=== PATIENT | male | born 1950 | race Caucasian/White ===

== ENCOUNTER 2020-01-08 16:02 | Emergency (ER) | payer MEDICARE, SELFPAY ==
--- NOTE | ~2020-01-08 | XR_ITS ---
EXAMINATION: XR wrist LT min 3V EXAM DATE: 01/08/2020 16:53 INDICATION: Initial encounter following injury, with pain of the left wrist. TECHNIQUE: Left wrist frontal, frontal with ulnar deviation, oblique and lateral projections obtained and reviewed. There is no prior study for comparison. FINDINGS: Left wrist scapholunate joint space is maintained. Acute comminuted left distal radial met aphyseal fracture, with about 30 degrees dorsal angulation and mild displacement dorsally. Closed, po sttraumatic fracture(s). There is overlying soft tissue swelling. No other acute findings. Advance d first carpometacarpal joint primary osteoarthritis. IMPRESSION: Comminuted left distal radial metaphyseal fracture, posterior angulation and displacemen t. Reviewed, dictated and finalized at location A. IMPRESSION: Comminuted left distal radial metaphyseal fracture, posterior angu lation and displacement.
[2020-01-08 16:07] VITALS: BP 108/80; PULSE 86; RESP 16; TEMP 37; O2SAT 98
--- NOTE | 2020-01-08 16:32 | ED.UPPEXIN ---
HPI - Extremity Injury (Upper) General Chief Complaint: Extremity Injury, Upper Stated Complaint: left wrist pain Time Seen by Provider: 01/08/20 16:12 Source: patient Mode of arrival: ambulatory Limitations: no limitations History of Present Illness HPI narrative: Pt is a 69 y/o male who presents to the ED with c/o lt wrist and lt knee pain secondary to a fall. He states that he stripped on his stairs and fell. Pt denies any dizziness. MD complaint: injury to: left and wrist Other injuries: LLE (knee) Place: home Context: fall Associated symptoms: denies other symptoms Related Data Home Medications Medication Instructions Recorded Confirmed buspirone 15 mg tablet 15 mg PO TID 09/05/19 metoprolol succinate 25 mg PO DAILY 01/08/20 Allergies Allergy/AdvReac Type Severity Reaction Status Date / Time adhesive tape Allergy Unknown Rash Verified 11/21/19 12:37 aspirin Allergy Unknown Rash Verified 11/21/19 12:37 cyclobenzaprine Allergy Unknown Nausea Verified 11/21/19 12:37 Review of Systems Review of Systems: All systems reviewed & are unremarkable except as noted in HPI and below Musculoskeletal: Musculoskeletal: Reports arthralgias (lt wrist and lt knee) Neurologic: Denies dizziness PMFSH Past Medical History Medical History (Updated 01/08/20 @ 17:15 by Ashish Gasca MD) Anxiety Arthritis Coronary artery disease CVA (cerebral vascular accident) Essential (primary) hypertension Factor VIII deficiency Gout, unspecified HLD (hyperlipidemia) HTN (hypertension) Insomnia due to medical condition Kidney stones Major depressive disorder, single episode, unspecified Myocardial infarction Pneumonia Polyosteoarthritis, unspecified Von Willebrand's disease Surgical History Surgical History H/O heart artery stent H/O shoulder surgery left History of surgical removal of meniscus of knee Rt knee removed Social History Social History Smoking status: Never smoker Alcohol intake: never Exam Const: General: healthy appearing, no acute distress and well developed Nutritional Appearance: well nourished Orientation/consciousness: patient oriented x3 (alert) and Other orientation findings (Alert) Limitations: no limitations HENMT: Head: normocephalic and atraumatic Ears: external ears normal General nose exam: No nasal discharge present and no epistaxis Face and sinus: face symmetric Mouth: Yes lip normal, Yes tongue normal and Yes moist mucous membranes Eyes: Conjunctivae: conjunctivae normal Sclera: sclerae normal EOM: EOMs intact bilaterally Neck: Neck: full ROM Chest: Chest palpation & inspection: no tenderness Resp: Effort & Inspection: normal respiratory effort Cardio: Rate: regular rate Rhythm: regular rhythm Peripheral pulses: radial pulses present bilateral GI: Inspection: non-distended Back/Spine/Pelvis: Thoracic/Lumbar Spine: thoracic and lumbar spine normal to inspection Skin: General skin exam: normal color and no rashes or lesions noted Neuro: General: patient oriented x3 (alert), moves all extremities and no focal motor deficits Cranial nerves: Yes facial symmetry Speech: normal speech Motor exam (neuro): Motor abnormalities not present Extrem: General: normal to inspection, full ROM, capillary refill normal and no pedal edema Right upper extremity: elbow/forearm abrasion (rt forearm) Left upper extremity: wrist swelling and deformity (steven deformity of distal radius) Psych: Affect: normal affect Course Consultations Consultation #1: Discussed case with Dr. Griggs, the orthopedic surgeon. Will see the pt in office on . Date: 01/08/20 Time: 17:02 Vital Signs Vital signs: Vital Signs Temperature 37.0 C 01/08/20 16:07 Pulse Rate 86 01/08/20 16:07 Respiratory Rate 16 01/08/20 16:07 Blood Pressure 108/80 01/08/20 16:07 Pulse Oximetry 98
--- NOTE | 2020-01-08 17:57 | PC.NURSE ---
Verbal order readback from EDP , sugar tong splint on the left wrist.
[2020-01-08 18:20] VITALS: BP 110/74; PULSE 82; RESP 16; O2SAT 99
== END 2020-01-08 18:27 | disposition home or self-care (01) ==
PROVIDERS: Emergency Provider Emergency Medicine; PCP Family Medicine
DX: S52.532A Colles' fracture of left radius, initial encounter for closed fracture (principal); Z95.5 Presence of coronary angioplasty implant and graft; F41.9 Anxiety disorder, unspecified; M19.90 Unspecified osteoarthritis, unspecified site; I25.10 Atherosclerotic heart disease of native coronary artery without angina pectoris; Z86.73 Personal history of transient ischemic attack (TIA), and cerebral infarction without residual deficits; I10 Essential (primary) hypertension; M10.9 Gout, unspecified; E78.5 Hyperlipidemia, unspecified; Z87.442 Personal history of urinary calculi; F32.9 Major depressive disorder, single episode, unspecified; I25.2 Old myocardial infarction; D68.0 Von Willebrand disease; W10.9XXA Fall (on) (from) unspecified stairs and steps, initial encounter
CPT/HCPCS: 29125; 73110; 99284; A4565; A9270

== ENCOUNTER 2020-03-07 18:26 | Inpatient (IN) | payer MEDICARE, SELFPAY ==
--- NOTE | ~2020-03-07 | CT_ITS ---
EXAMINATION: CT abdomen pelvis w con DATE: 03/07/2020 20:16 INDICATION: Confusion. GI bleed. TECHNIQUE: Computed tomography (CT) of the abdomen and pelvis was performed with 100 cc Omnipaque 350 intravenous contrast. The dose-length product was 1398.90 mGy-cm. Automated exposure control and ite rative reconstruction technique were employed. COMPARISON: None. FINDINGS: There is dependent atelectasis. There is atherosclerosis. There are calcified granulomas in the spleen. Small subcentimeter hypodensities of the kidneys, most likely benign cysts. The liver, p ancreas, adrenal glands are unremarkable. Normal appendix. Nonobstructive bowel gas pattern. No free air or free fluid. Colonic diverticulosis without evidence for diverticulitis. No evidence for aneury sm. Status post median sternotomy for CABG. Old mild compression deformities of the lower thoracic sp ine, likely chronic. IMPRESSION: 1. No acute abdominal abnormality. Reviewed, dictated and finalized at location A.
--- NOTE | ~2020-03-07 | CT_ITS ---
EXAMINATION: CT brain wo con DATE: 03/07/2020 20:16 INDICATION: Confusion. TECHNIQUE: Computed tomography (CT) of the head was performed without intravenous contrast. The dose- length product was 605.33 mGy-cm. The mA was adjusted according to patient size. Iterative reconstruc tion technique was employed. COMPARISON: CT dated 08/02/2018 FINDINGS: Generalized atrophy. There are scattered mild periventricular and subcortical white matter changes, most likely related to small vessel ischemic disease (microangiopathy). There is intracrania l atherosclerosis. No acute intracranial hemorrhage, infarction, mass or mass effect. There is mucosa l thickening of the ethmoid and right sphenoid sinus. Mastoids are pneumatized. No depressed skull fr actures. IMPRESSION: 1. No acute intracranial abnormality. 2: Chronic sinusitis. 3: Chronic age-related findings. Reviewed, dictated and finalized at location A.
[2020-03-07 18:32] VITALS: BP 130/69; PULSE 94; RESP 20; TEMP 36.7; O2SAT 97
--- NOTE | 2020-03-07 19:12 | ED.GIBLEED ---
HPI - GI Bleed General Chief complaint: GI Bleed Stated complaint: DARK TARRY STOOLS Time Seen by Provider: 03/07/20 19:03 History of Present Illness HPI Narrative: Patient presents via EMS with his sister for GI bleed. He said he has been passing blood for days and weeks. He denies any pain. He has a bruise on his right upper arm but does not recall how he got it. He knows the year but says that Dr. Mcgee lives with him. His sister said he has been confused for a couple days. He is not on a blood thinner. Friends of his called the sister to come check on him. She said his house was a mess although usually he is quite fastidious about his cleanliness. I asked him if I could speak with his sister and he said yes but she is going to give you lies. He said that he is completely confused and not at all himself. He does live alone but has good friends and family support. He has not needed additional help until recently. MD complaint: blood streaked stool Onset (ago): day(s) Pain Consistency: constant Severity: moderate Relieving factors: none Exacerbating factors: none Associated symptoms: easy bruising and other (Confusion) Related Data Home Medications Medication Instructions Recorded Confirmed buspirone 15 mg tablet 15 mg PO TID 09/05/19 02/22/20 metoprolol succinate 25 mg PO DAILY 01/08/20 02/22/20 hydrocodone-acetaminophen 1 tablet PO Q2-6H PRN 03/07/20 tizanidine 4 mg PO Q3-4D PRN 03/07/20 Allergies Allergy/AdvReac Type Severity Reaction Status Date / Time adhesive tape Allergy Unknown Rash Verified 02/22/20 12:07 aspirin Allergy Unknown Rash Verified 02/22/20 12:07 cyclobenzaprine Allergy Unknown Nausea Verified 02/22/20 12:07 Review of Systems Review of Systems: Narrative: CONSTITUTIONAL: Denies fever, chills, or sweats. EYES: Denies visual changes, redness, or discharge. ENT: Denies rhinorrhea, congestion, sore throat, or otalgia. CARDIOVASCULAR: Denies chest pain, palpitations, or edema. RESPIRATORY: Denies cough or dyspnea. GASTROINTESTINAL: Denies abdominal pain, nausea, vomiting, or diarrhea. GENITOURINARY: Denies dysuria or hematuria. SKIN: Denies rash or itching. MUSCULOSKELETAL: Denies back pain, joint pain, or myalgia. NEUROLOGIC: Denies headache, numbness, or weakness. PSYCHIATRIC: Denies confusion. PMFSH Past Medical History Medical History Anxiety Arthritis Coronary artery disease CVA (cerebral vascular accident) Essential (primary) hypertension Factor VIII deficiency Gout, unspecified HLD (hyperlipidemia) HTN (hypertension) Insomnia due to medical condition Kidney stones Major depressive disorder, single episode, unspecified Myocardial infarction Pneumonia Polyosteoarthritis, unspecified Von Willebrand's disease Surgical History Surgical History H/O heart artery stent H/O shoulder surgery left History of surgical removal of meniscus of knee Rt knee removed Family History Family History Sibling Hypertension Father Family history of hemophilia Mother Cerebrovascular accident Social History Social History Smoking status: Never smoker Alcohol intake: never Exam Narrative: Exam Narrative: GENERAL: Pale, well-nourished, and in no acute distress. Hair is disheveled. HEAD: Normocephalic, atraumatic. EYES: PERRLA and EOMI. ENT: Nares clear, no rhinorrhea or epistaxis. Mucous membranes moist. NECK: Supple. CHEST: Clear to auscultation. No respiratory distress. Well-healed scar on the chest. HEART: Regular rate and rhythm. No murmur heard. Normal peripheral pulses. ABDOMEN: Soft, nontender, nondistended, normal active bowel sounds. EXTREMITIES: Normal range of motion. No edema. Bruise on the right upper arm SKIN: Warm, dry, no rash. NEURO: No focal deficits.
[2020-03-07 20:08] LABS: Estimated CRCL calculation 79 ml/min; Estimated Glomerular Filt Rate > 60
[2020-03-07 20:43] LABS: Basophils Absolute Auto 0.1 K/mm3 (0.0-0.1); Basophils Percent Auto 0.4 % (0.2-1.2); Eosinophils Absolute Auto 0.1 K/mm3 (0-0.3); Immature Granulocyte Absolute 0.15 K/mm3 (0.00-0.031); Immature Granulocyte Percent A 1.1 % (0-0.5); Lymphocytes Absolute Auto 2.23 K/mm3 (0.9-3.2); Mean Corpuscular HGB Conc 32.7 g/dl (32-36); Mean Corpuscular Hemoglobin 32.8 pg (26-34); Mean Corpuscular Volume 100.5 fl (80-100); Mean Platelet Volume 11.6 fl (7.4-10.4); Monocytes Absolute Auto 1.3 K/mm3 (0.1-0.6); Monocytes Percent Auto 10.2 % (2.6-8.5); Neutrophils Absolute Auto 9.2 K/mm3 (1.3-6.7); Neutrophils Percent Auto 70.3 % (45.5-73.1); Nucleated Red Blood Cells Absolute Auto 0.1 K/mm3 (0.0-0.012); Nucleated Red Blood Cells Perc 0.5 % (0.0-0.2); Platelet Count Result 250 k/mm3 (150-375); Red Blood Count 1.95 M/mm3 (4.6-6.20); Red Cell Distribution Width 14.7 % (11.5-14.5); White Blood Count 13.1 K/mm3 (4.5-10.0)
[2020-03-07 20:46] LABS: Hemoglobin 6.4 g/dL (14.0-18.0)
[2020-03-07 20:47] LABS: Hematocrit 19.6 % (42.0-52.0)
[2020-03-07 20:53] LABS: Alanine Aminotransferase 22 U/L (4-50); Albumin Level 3.5 g/dL (3.5-5.1); Alkaline Phosphatase 40 U/L (38-126); Aspartate Amino Transferase 28 U/L (17-59); Bilirubin,Total 0.3 mg/dL (0.2-1.3); Blood Urea Nitrogen 18 mg/dL (9-20); Calcium 8.5 mg/dL (8.4-10.2); Carbon Dioxide 25 mmol/L (22-30); Chloride 107 mmol/L (98-107); Estimated CRCL calculation 100 ml/min; Estimated Glomerular Filt Rate > 60; Glucose 106 mg/dL (75-110); Sodium 135 mmol/L (137-145)
[2020-03-07 20:55] LABS: INR 1.2; Prothrombin Time 14.8 Seconds (11.1-14.7)
[2020-03-07 20:56] LABS: Partial Thromboplastin Time 26.9 SECONDS (22.3-36.8)
--- NOTE | 2020-03-07 21:59 | PC.NURSE ---
patient took bedtime home medications
[2020-03-07 22:07] VITALS: BP 141/72; PULSE 97; RESP 20; TEMP 36.7; O2SAT 95
[2020-03-07] MEDS: SODIUM CHLORIDE 0.9% IV 250 ML 30 ML IV CONT (22:18)
[2020-03-07] MEDS: TUBING, BLOOD SET 1 EACH XX (22:22)
[2020-03-07 22:29] VITALS: BP 150/89; PULSE 99; RESP 20; TEMP 37; O2SAT 95
[2020-03-07 23:27] VITALS: BP 106/79; PULSE 81; RESP 19; TEMP 36.8; O2SAT 98
[2020-03-07] MEDS: SODIUM CHLORIDE 0.9% IV 250 ML 30 ML (23:45)
[2020-03-07] MEDS: TUBING, BLOOD PLUM PUMP TUBING 1 EACH XX (23:45)
[2020-03-07 23:50] VITALS: BP 127/66; PULSE 84; RESP 22; TEMP 36.9; O2SAT 99
[2020-03-08] VITALS (13 sets, daily range): BP systolic 123–169; BP diastolic 58–88; PULSE 72–86; RESP 17–21; TEMP 36.4–37.7; O2SAT 96–100; BMI 31.0
--- NOTE | 2020-03-08 03:16 | PM.IMHP ---
H&P: HPI History of Present Illness Chief complaint: Dark bloody stool on Wednesday Narrative: Date and time of patient contact: 03/08/2000 30 at 1:55 a.m. Hollis Gentile is a 70 year old male with a past medical history of Von Willebrand's disease, coronary artery disease, and hypertension who presented to the ER via private vehicle due to bloody stools that occurred 2 days ago. The patient stated that he would not have come into the hospital but his sister insisted. He has had intermittent rectal bleeding on and off for years. He has had colonoscopy many years ago with no obvious source of bleeding noted. The patient reports that he had a small stool on Wednesday without any significant bleeding that he noticed. He reported that about a week or so ago he did have some lightheadedness with standing. He denies any increased shortness of breath. He reported that when he had the episode of rectal bleeding he did feel as if he may pass out but has had no further syncopal or near syncopal events. He initially denied having any falls but the patient evidently had fallen in December and had a Colles fracture of his left wrist. He had also stumbled while getting off of a tractor a week or 2 ago and has a large bruise to his right upper arm. According to outpatient records the patient was started on Xarelto August 2019 due to chest pain. The patient had been taking 3 325 mg aspirin twice a day to help with his chest pain/circulation. The patient was started on 2.5 mg of Xarelto b.i.d. an effort to help with his chest pain. When the patient returned for follow-up visit in October the patient had increased his Xarelto to 5 mg twice a day and was taking 325 mg aspirin t.i.d. he was still having chest pain even with nitroglycerin. He did not want to go to the hospital and was subsequently placed on Xarelto 10 mg a day which the patient was taking 5 mg b.i.d. and his metoprolol succinate was increased to 50 mg daily. The patient wanted to increase is Xarelto at that time and was told to discuss it with his landscape crew member. The patient did not specify whether not he had talked to his landscape crew member about the Xarelto and there was some confusion as to whether patient is still taking 5 mg b.i.d. of Xarelto or if he has increased himself to 10 mg b.i.d.. Patient is also on Celebrex. It is unclear if the patient is still taking excessive amounts of aspirin at home. The patient was referred to Dr. Mcclelland to persistent leukocytosis since he could not get into Dr. Breen as he no longer comes to the [facility] location. He denies any hematuria or other urinary symptoms. He denies any increased bruising from baseline. He has not noticed any bleeding from his gums or nose. The patient at times does seem to be confused. He has had multiple evaluations for confusion with multiple neuro consults in the past. He recently had an outpatient MRI that was unremarkable except for microvascular changes. I suspect that some of the patient's confusion may be due to his narcotic and muscle relaxer use. In addition to Ambien and trazodone use. Source of information past medical records and patient report. Patient is only a fair historian. The med rec listed below according to nursing documentation. I have asked the nursing staff to change the patient's metoprolol dose to 50 mg that the patient's medication was increased toback in November and this has not yet occurred. I also asked the nursing staff to place the Xarelto order in according to what the patient takes and this has also not occurred. The rest of the medication reconciliation is accurate to the best of my knowledge. Review of Systems Review of Systems: Narrative: 12 systems were reviewed with pertinent positives and negatives per HPI. Except as documented in the HPI, all other systems were reviewed and are negative. [facility] Past Medical History Medical History (Updated 03/08/20 @ 04:00 by Thais Reagan DO) Anxie
[2020-03-08] MEDS: LORAZEPAM 0.5 MG TABLET PO (04:52)
[2020-03-08 05:47] LABS: Hematocrit 25.3 % (42.0-52.0); Hemoglobin 8.3 g/dL (14.0-18.0); Mean Corpuscular HGB Conc 32.8 g/dl (32-36); Mean Corpuscular Hemoglobin 30.6 pg (26-34); Mean Corpuscular Volume 93.4 fl (80-100); Mean Platelet Volume 10.8 fl (7.4-10.4); Platelet Count Result 239 k/mm3 (150-375); Red Blood Count 2.71 M/mm3 (4.6-6.20); Red Cell Distribution Width 16.6 % (11.5-14.5); White Blood Count 10.9 K/mm3 (4.5-10.0)
[2020-03-08 06:19] LABS: Blood Urea Nitrogen 12 mg/dL (9-20); Calcium 8.2 mg/dL (8.4-10.2); Carbon Dioxide 24 mmol/L (22-30); Chloride 107 mmol/L (98-107); Estimated CRCL calculation 101 ml/min; Estimated Glomerular Filt Rate > 60; Glucose 106 mg/dL (75-110); Potassium 3.8 mmol/L (3.4-5.0); Sodium 137 mmol/L (137-145)
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
[2020-03-08] MEDS: LACTATED RINGERS 1,000 ML 150 ML IV CONT (09:30)
--- NOTE | 2020-03-08 09:50 | WPDANESEPPF ---
Anes - Initial Pre Proc Eval Procedure: Operation Date: 03/08/20 10:30 Proposed Procedures p Esophagogastroduodenoscopy - Ashish Torres MD Date/Time: 03/08/20 09:50 Surgeon: Leora Love PA-C Pre Op Diagnosis: Dark bloody stool on Wednesday Patient Data Age: 70 Gender: M Height: 1.8 m Weight: 100.9 kg Last Vital Signs Temp 37.0 C 03/08/20 09:27 Pulse 79 03/08/20 09:27 Resp 18 03/08/20 09:27 BP 151/73 H 03/08/20 09:27 Pulse Ox 96 03/08/20 09:27 Allergies Allergy/AdvReac Type Severity Reaction Status Date / Time adhesive tape Allergy Unknown Rash Verified 02/22/20 12:07 aspirin Allergy Unknown Rash Verified 02/22/20 12:07 cyclobenzaprine Allergy Unknown Nausea Verified 02/22/20 12:07 Home Medications Medication Instructions Recorded Confirmed Type buspirone 15 mg tablet 15 mg PO TID 09/05/19 03/08/20 History celecoxib 200 mg capsule 200 mg PO DAILY #30 cap 09/11/19 03/08/20 Rx nitroglycerin 0.4 mg sublingual 0.4 mg SUBLINGUAL Q5M PRN #25 09/18/19 03/08/20 Rx tablet tablet trazodone 50 mg tablet 50 mg PO .qhs #30 tablet 10/16/19 03/08/20 Rx lorazepam 0.5 mg tablet 0.5 mg PO TID PRN #270 tablet 11/22/19 03/08/20 Rx citalopram 20 mg tablet 20 mg PO DAILY #30 tablet 11/26/19 03/08/20 Rx atorvastatin 80 mg tablet 80 mg PO DAILY #90 tablet 12/12/19 03/08/20 Rx amlodipine 10 mg tablet 10 mg PO DAILY #90 tablet 12/24/19 03/08/20 Rx lisinopril 40 mg tablet 40 mg PO DAILY #30 tablet 12/24/19 03/08/20 Rx hydrocodone-acetaminophen 1 tablet PO Q6H PRN #20 tablet 01/08/20 03/08/20 Rx allopurinol 300 mg tablet 300 mg PO DAILY #90 tablet 02/13/20 03/08/20 Rx isosorbide mononitrate 60 mg 60 mg PO DAILY #90 tablet 02/13/20 03/08/20 Rx tablet,extended release 24 hr zolpidem 12.5 mg tablet,extended 12.5 mg PO .QHS #30 tablet 02/19/20 03/08/20 Rx release,multiphase rivaroxaban 10 mg tablet 10 mg PO DAILY #30 tablet 02/22/20 03/08/20 Rx hydrocodone-acetaminophen 10 - 325 tablet PO Q3-5H PRN 03/07/20 03/08/20 History tizanidine 4 mg PO Q3-4D PRN 03/07/20 03/08/20 History metoprolol succinate 25 mg PO BID 03/08/20 03/08/20 History Laboratory Tests 03/07/20 03/07/20 03/07/20 18:53 20:05 20:20 WBC RBC Hgb Hct MCV MCH MCHC RDW Plt Count MPV Immature Gran % (Auto) Neut % (Auto) Lymph % (Auto) Love % (Auto) Eos % (Auto) Baso % (Auto) Lymph # (Auto) Love # (Auto) Eos # (Auto) Baso # (Auto) Abs Immat Gran (auto) Absolute Neuts (auto) Absolute Nucleated RBC Nucleated RBC % PT INR APTT Sodium 135 mmol/L L mmol/L (137-145) Potassium 4.0 mmol/L mmol/L (3.4-5.0) Chloride 107 mmol/L mmol/L (98-107) Carbon Dioxide 25 mmol/L mmol/L (22-30) BUN 18 mg/dL mg/dL (9-20) Creatinine 0.90 mg/dL mg/dL 0.70 mg/dL mg/dL (0.8-1.5) (0.7-1.3) Estim Creat Clear Calc 79 ml/min ml/min 100 ml/min ml/min Estimated GFR > 60 > 60 (59 - ) (59 - ) Glucose 106 mg/dL mg/dL (75-110) Calcium 8.5 mg/dL mg/dL (8.4-10.2) Total Bilirubin 0.3 mg/dL mg/dL (0.2-1.3) AST 28 U/L U/L (17-59) ALT 22 U/L U/L (4-50) Alkaline Phosphatase 40 U/L U/L (38-126) Total Protein 5.0 g/dL L g/dL (6.3-8.2) Albumin 3.5 g/dL g/dL (3.5-5.1) Blood Type A Positive Antibody Screen Negative Crossmatch See Detail 03/07/20 03/07/20 03/08/20 20:29 20:29 05:22 WBC 13.1 K/mm3 H K/mm3 10.9 K/mm3 H K/mm3 (4.5-10.0) (4.5-10.0) RBC 1.95 M/mm3 L M/mm3 2.71 M/mm3 L M/mm3 (4.6-6.20) (4.6-6.20) Hgb
[2020-03-08] MEDS: lisinopriL 20 MG TABLET 40 MG PO (11:31)
[2020-03-08] MEDS: ISOSORBIDE MONONITRATE 60 MG TAB.ER.24H PO (11:31)
[2020-03-08] MEDS: CITALOPRAM HYDROBROMIDE 20 MG TABLET PO (11:31)
[2020-03-08] MEDS: TIZANIDINE HCL 4 MG TABLET PO (11:32)
[2020-03-08] MEDS: AMLODIPINE BESYLATE 5 MG TABLET 10 MG PO (11:32)
[2020-03-08] MEDS: ATORVASTATIN 40 MG TABLET 80 MG PO (11:32)
[2020-03-08] MEDS: busPIRone HCL 5 MG TABLET 15 MG PO ×2 (11:33→17:26)
[2020-03-08] MEDS: allopurinoL 300 MG TABLET PO (11:33)
[2020-03-08 12:01] LABS: Hematocrit 25.9 % (42.0-52.0); Hemoglobin 8.5 g/dL (14.0-18.0)
--- NOTE | 2020-03-08 12:07 | P.CDI_ITS ---
CDI Query Clarification Request - 03/07 H&H 6.4/19.6 -Two units of blood transfused - 03/08 H&H 8.3/25.3 - Per EGD: acute gastric ulcers and acute duodenal ulcers with clot present - Dr Torres documented reason for EGD- melena; gi bleed; anemia, blood loss. - Problem list- Acute GI bleed: multifactorial due to Celebrex, Xarelto use and possibly von Willebrands disease contributing to anemia documented in H&P. Please clarify typ/cause and acuity of anemia: * Acute blood loss anemia * Acute blood loss anemia on anemia of chronic disease * Acute anemia of other cause * Chronic anemia * Other * Unable to determine
[2020-03-08] MEDS: PANTOPRAZOLE SODIUM IV 40 MG VIAL IV PUSH (12:36)
[2020-03-08] MEDS: METOPROLOL SUCCINATE EXT REL 25 MG TABCR PO (12:36)
--- NOTE | 2020-03-08 16:26 | PM.DS ---
DS: Admitting Diagnosis Admitting Diagnosis Admitting Diagnosis: Gastrointestinal hemorrhage, unspecified DS: Discharge Diagnosis Discharge Diagnosis (1) Acute GI bleeding: Code(s): K92.2 - Gastrointestinal hemorrhage, unspecified Status: Acute Assessment and Plan: Multifactorial due to Celebrex, Xarelto use and possibly von Willebrand's disease contributing to anemia. 2 units of packed red blood cells was given in the emergency department. Repeat CBC this morning showed his hemoglobin at 8.3 and hematocrit at 25 %. Repeat H&H at noon showed his hemoglobin was stable at 8.5, hematocrit 25.9% He had an EGD this morning by Dr. Torres who found that he has gastric ulcers, duodenal ulcer and a bulb deformity to his duodenum. Dr. Torres feels he needs to be placed on a PPI pantoprazole 40 mg twice a day, avoid aspirin, NSAIDs and anticoagulation. Dr. Torres would like him to follow-up in the office for a repeat EGD in 2 months. The patient is adamant about leaving to go home today. He does not want stay another night and states he is feeling much better after his blood transfusions in after his EGD. GI states he wants the patient to have a clear liquid diet and then advanced as tolerated to soft diet. The patient has tolerated clear diet without any issues but he is adamant about leaving at this time without trying a soft diet. Blood counts are otherwise stable at this time. I explained to the patient the importance of staying for further evaluation, advancement of diet, recheck CBC but the patient would like to leave at this time and I will have him sign out against medical advice. Will have the patient check a CBC on Wednesday Patient states he does have a follow-up with his primary care provider Dr. Mcgee on Wednesday as well. Dr. Mcgee can continue monitoring his H&H and check on him Wednesday at their scheduled appointment. (2) Von Willebrand disease: Code(s): D68.0 - Von Willebrand's disease Status: Acute Assessment and Plan: I found a consult note from 2009 that stated that the patient's von Willebrand's disease was mild and min is a get older sometimes no longer have difficulty with bleeding issues. Will stop the patient's Celebrex and Xarelto. Patient H&H is stable after 2 units were transfused. Will have him follow-up with his primary care provider for further evaluation. (3) Chronic sinusitis: Qualifiers: Sinusitis location: unspecified location Qualified Code(s): J32.9 - Chronic sinusitis, unspecified Code(s): J32.9 - Chronic sinusitis, unspecified Status: Acute Assessment and Plan: The patient and an outpatient evaluation by ENT several years ago for the same CT finding and nasal polyps. At that time ENT recommended conservative management along with the patient was not having significant symptoms due to his risk of bleeding and other comorbidities. The patient denies significant sinus symptoms. (4) Opioid dependence with opioid-induced disorder: Code(s): F11.29 - Opioid dependence with unspecified opioid-induced disorder Status: Acute Assessment and Plan: The patient's home Mill[place] has been ordered however have decreased the frequency q.4 hours. Adjunct if pain medication with muscle relaxers per his home regimen have been ordered. His Celebrex is currently on hold (5) Gastric ulcer: Code(s): K25.9 - Gastric ulcer, unspecified as acute or chronic, without hemorrhage or perforation Status: Acute (6) Duodenal ulcer: Code(s): K26.9 - Duodenal ulcer, unspecified as acute or chronic, without hemorrhage or perforation Status: Acute (7) Leukocytosis: Code(s): D72.829 - Elevated white blood cell count, unspecified
[2020-03-08 18:19] LABS: Hematocrit 24.6 % (42.0-52.0); Hemoglobin 7.9 g/dL (14.0-18.0)
--- NOTE | 2020-03-08 18:39 | PC.NURSE ---
Pt is being discharged this p.m. Pt's IV has been removed and pt is eating dinner, which was required for his discharge (to make sure he could tolerate). Pt's sister is coming to pick pt up between 8:30 and 9:00, and discharge papers have been printed and will be reviewed with pt at time of leaving.
== END 2020-03-08 20:06 | disposition home or self-care (01) | DRG 378 ==
LOC: ANHED 23:35 → ANH3MEDSUR 03-08 00:07
PROVIDERS: Internal Medicine Gastroenterology; Nurse Practitioner Family; Admitting Provider Internal Medicine; Emergency Provider Emergency Medicine; PCP Family Medicine; Visit Provider Physician Assistant
PROC: 0DJ08ZZ Inspection of Upper Intestinal Tract, Via Natural or Artificial Opening Endoscopic (ICD-10-PCS; CPT 43235; principal; 2020-03-08 10:30)
DX: K26.0 Acute duodenal ulcer with hemorrhage (principal); D68.0 Von Willebrand disease; K31.89 Other diseases of stomach and duodenum; K25.3 Acute gastric ulcer without hemorrhage or perforation; D50.0 Iron deficiency anemia secondary to blood loss (chronic); F11.29 Opioid dependence with unspecified opioid-induced disorder; J32.9 Chronic sinusitis, unspecified; D72.829 Elevated white blood cell count, unspecified; R41.0 Disorientation, unspecified; I25.10 Atherosclerotic heart disease of native coronary artery without angina pectoris; I10 Essential (primary) hypertension; E78.5 Hyperlipidemia, unspecified; M10.9 Gout, unspecified; Z66 Do not resuscitate; I25.2 Old myocardial infarction; Z79.899 Other long term (current) drug therapy; Z95.1 Presence of aortocoronary bypass graft; Z79.01 Long term (current) use of anticoagulants
CPT/HCPCS: 36415; 36430; 70450; 74177; 80048; 80053; 85014; 85018; 85025; 85027; 85610; 85730; 86850; 86900; 86901; 86923; 88305; 96360; 99285; A9270; C9113; J2001; J2704; J7050; J7120; P9016; Q9967

== ENCOUNTER 2020-03-11 13:23 | Emergency (ER) | payer MEDICARE, SELFPAY ==
--- NOTE | ~2020-03-11 | XR_ITS ---
EXAMINATION: XR chest 1V portable DATE: 03/11/2020 13:55 INDICATION: Weakness. TECHNIQUE: A single frontal view of the chest was obtained. COMPARISON: Chest 2 views 05/08/2019, CT abdomen and pelvis 03/07/2020 FINDINGS: There is mild atelectasis in left lower lung zone. Calcified left lung nodules and calcifie d left hilar lymph nodes are consistent with old granulomatous disease. No pleural effusion or pneumo thorax. The heart size is normal. Median sternotomy wires are noted. There is a suture anchor in left humeral head. IMPRESSION: 1. Mild atelectasis in left lower lung zone. Reviewed, dictated and finalized at location A.
[2020-03-11 13:25] VITALS: BP 85/50; PULSE 57; RESP 20; TEMP 36.3; O2SAT 97
--- NOTE | 2020-03-11 13:40 | ECG_ITS ---
Measurements Intervals [place] Rate: 62 P: 41 RI: 201 QRS: 51 QRSD: 153 T: 21 QT: 457 QTc: 467 Interpretive Statements SINUS RHYTHM BORDERLINE AV CONDUCTION DELAY RIGHT BUNDLE BRANCH BLOCK BASELINE ARTIFACT- I, II, III, AVL, AVF ABNORMAL ECG Electronically Signed On 03-11-2020 13:59:35 CDT by Eloy Villegas D.O.
[2020-03-11 14:00] LABS: Basophils Absolute Auto 0.1 K/mm3 (0.0-0.1); Basophils Percent Auto 0.6 % (0.2-1.2); Eosinophils Absolute Auto 0.3 K/mm3 (0-0.3); Eosinophils Percent Auto 2.6 % (0-4.4); Hematocrit 27.1 % (42.0-52.0); Hemoglobin 8.6 g/dL (14.0-18.0); Immature Granulocyte Absolute 0.08 K/mm3 (0.00-0.031); Immature Granulocyte Percent A 0.8 % (0-0.5); Lymphocytes Absolute Auto 1.75 K/mm3 (0.9-3.2); Lymphocytes Percent Auto 17.6 % (18.3-44.2); Mean Corpuscular HGB Conc 31.7 g/dl (32-36); Mean Corpuscular Hemoglobin 30.4 pg (26-34); Mean Corpuscular Volume 95.8 fl (80-100); Mean Platelet Volume 10.3 fl (7.4-10.4); Monocytes Absolute Auto 0.8 K/mm3 (0.1-0.6); Monocytes Percent Auto 8.3 % (2.6-8.5); Neutrophils Percent Auto 70.1 % (45.5-73.1); Nucleated Red Blood Cells Perc 0.2 % (0.0-0.2); Platelet Count Result 318 k/mm3 (150-375); Red Blood Count 2.83 M/mm3 (4.6-6.20); Red Cell Distribution Width 15.3 % (11.5-14.5)
[2020-03-11] MEDS: SODIUM CHLORIDE 0.9% IV 1,000 ML 999 ML IV CONT (14:08)
[2020-03-11 14:10] LABS: Partial Thromboplastin Time 40.9 SECONDS (22.3-36.8)
[2020-03-11 14:11] LABS: Alanine Aminotransferase 23 U/L (4-50); Albumin Level 3.5 g/dL (3.5-5.1); Alkaline Phosphatase 46 U/L (38-126); Aspartate Amino Transferase 25 U/L (17-59); Bilirubin,Total 0.5 mg/dL (0.2-1.3); Blood Urea Nitrogen 15 mg/dL (9-20); Calcium 8.6 mg/dL (8.4-10.2); Carbon Dioxide 23 mmol/L (22-30); Chloride 102 mmol/L (98-107); Estimated CRCL calculation 55 ml/min; Estimated Glomerular Filt Rate 60; Glucose 99 mg/dL (75-110); Potassium 3.9 mmol/L (3.4-5.0); Sodium 134 mmol/L (137-145)
[2020-03-11 14:21] VITALS: BP 85/54; PULSE 65
[2020-03-11 14:23] VITALS: BP 88/52; PULSE 65
[2020-03-11 14:23] LABS: Troponin I < 0.012 ng/mL (0.000-0.034)
[2020-03-11 14:24] VITALS: BP 80/66; PULSE 80
--- NOTE | 2020-03-11 14:35 | ED.WEAKNESS ---
HPI - Weakness General Chief complaint: Weakness Stated complaint: LOW BP/BACK PAIN Time Seen by Provider: 03/11/20 13:24 History of Present Illness HPI Narrative: Patient is a 70-year-old male who presents to the ER from Dr. Mcgee's office. Patient was following up after a recent hospitalization for GI bleed. When he got to the clinic appointment he was found to be hypotensive. He was weak and felt to be slightly confused. Patient was reporting low back pain without known trauma. Upon presentation to the ER patient is pale, he is oriented x3 but slow to answer questions. Denies any dark black stools. Denies dizziness or loss of consciousness. No recent trauma. Denies lower extremity numbness or tingling. Patient is no longer taking Xarelto. Related Data Home Medications Medication Instructions Recorded Confirmed buspirone 15 mg tablet 15 mg PO TID 09/05/19 03/08/20 hydrocodone-acetaminophen 10 - 325 tablet PO Q3-5H PRN 03/07/20 03/08/20 tizanidine 4 mg PO Q3-4D PRN 03/07/20 03/08/20 metoprolol succinate 25 mg PO DAILY 03/08/20 03/11/20 Allergies Allergy/AdvReac Type Severity Reaction Status Date / Time adhesive tape Allergy Unknown Rash Verified 03/11/20 12:33 aspirin Allergy Unknown Rash Verified 03/11/20 12:33 cyclobenzaprine Allergy Unknown Nausea Verified 03/11/20 12:33 Review of Systems Review of Systems: All systems reviewed & are unremarkable except as noted in HPI and below Constitutional: Constitutional: Denies chills, Denies fever(s) and Denies weakness ENT: Denies nasal congestion and Denies sore throat Cardiovascular: Cardiovascular: Denies chest pain and Denies radiating jaw, neck or arm pain Respiratory: Respiratory: Denies cough, Denies dyspnea and Denies wheezing Gastrointestinal: Gastrointestinal: Denies abdominal pain, Denies diarrhea, Denies nausea and Denies vomiting Comments: Denies rectal bleeding PMFSH Social History Social History Social History: Primary care physician: Dr. Donte Chung Code status: DNR per patient request Smoking status: Never smoker Alcohol intake: never Substance use: never Additional living arrangements comments: The patient has been and 3 times. [place] He has 2 adult sons who are reportedly healthy. Additional occupation/education comments: He served in the [employer] for 17 years. 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 Gender identity (if verbalized by the patient): Male Spiritual care concerns: No Exam Narrative: Exam Narrative: GENERAL:Ill-appearing, well-nourished, and in no acute distress. HEAD: Normocephalic, atraumatic. EYES: PERRL and EOMI. ENT: Mucous membranes moist. CHEST: Clear to auscultation. No respiratory distress. HEART: Bradycardic and regular. Normal peripheral pulses. ABDOMEN: Soft, nontender, nondistended. Normal appearing stool on JERED that is faintly guaiac positive. EXTREMITIES: Normal range of motion. No edema. Right lower extremity prosthesis. SKIN: Warm, dry, no rash. NEURO: Alert and oriented x3. Course Course Emergency Course: Patient is awake alert and oriented x3. He has been up and ambulatory in the ER. He is received a liter of fluid. His color is improved. I discussed with him that would like to admit him to the hospital for observation given his recent GI bleed has hypotension. Patient adamantly declines admission to the hospital and is aware that we are concerned that he could deteriorate at home. Patient reports if he feels worse he will call an ambulance and come back but he does not want to stay in the hospital at this time. He will be signing out AGAINST MEDICAL ADVICE. Vital Signs Vital signs: Vital Signs Temperature 97.4 F L 03/11/20 13:25 Pulse Rate 57 L 03/11/20 13:25 Respiratory Rate 03/11/20 13:25 Blood Pressure 85/50 L 03/11/20 13:25
[2020-03-11 15:13] VITALS: BP 91/55; PULSE 66; RESP 18; O2SAT 99
--- NOTE | 2020-03-11 17:15 | PC.NURSE ---
patients family refused to plastering supervisor patient in er stating that he keeps leaving ama and they are tired of it . attempted to call patients sister who also refused to plastering supervisor patient. decoration checker cab called for patient. patient understands he most pay for cab
== END 2020-03-11 16:57 | disposition left against medical advice (07) ==
PROVIDERS: Emergency Provider Emergency Medicine; PCP Family Medicine
DX: I95.9 Hypotension, unspecified (principal); R19.5 Other fecal abnormalities; Z66 Do not resuscitate; I45.10 Unspecified right bundle-branch block; R94.31 Abnormal electrocardiogram [ECG] [EKG]; R91.8 Other nonspecific abnormal finding of lung field
CPT/HCPCS: 36415; 71045; 80053; 84484; 85025; 85610; 85730; 86850; 86900; 86901; 93005; 96360; 99284; J7030

== ENCOUNTER 2020-08-01 12:04 | Outpatient (CLI) | payer MEDICARE, SELFPAY ==
[2020-08-01 12:41] LABS: Basophils Absolute Auto 0.1 K/mm3 (0.0-0.1); Basophils Percent Auto 1.2 % (0.2-1.2); Eosinophils Absolute Auto 0.7 K/mm3 (0-0.3); Eosinophils Percent Auto 7.1 % (0-4.4); Hematocrit 40.7 % (42.0-52.0); Hemoglobin 13.4 g/dL (14.0-18.0); Immature Granulocyte Absolute 0.04 K/mm3 (0.00-0.031); Immature Granulocyte Percent A 0.4 % (0-0.5); Lymphocytes Absolute Auto 3.13 K/mm3 (0.9-3.2); Lymphocytes Percent Auto 32.2 % (18.3-44.2); Mean Corpuscular HGB Conc 32.9 g/dl (32-36); Mean Corpuscular Hemoglobin 32.8 pg (26-34); Mean Corpuscular Volume 99.8 fl (80-100); Mean Platelet Volume 10.5 fl (7.4-10.4); Monocytes Absolute Auto 0.8 K/mm3 (0.1-0.6); Monocytes Percent Auto 8.5 % (2.6-8.5); Neutrophils Absolute Auto 4.9 K/mm3 (1.3-6.7); Neutrophils Percent Auto 50.6 % (45.5-73.1); Platelet Count Result 228 k/mm3 (150-375); Red Blood Count 4.08 M/mm3 (4.6-6.20); Red Cell Distribution Width 14.7 % (11.5-14.5); White Blood Count 9.7 K/mm3 (4.5-10.0)
[2020-08-01 12:56] LABS: Alanine Aminotransferase 19 U/L (4-50); Albumin Level 3.8 g/dL (3.5-5.1); Alkaline Phosphatase 51 U/L (38-126); Anion Gap 5 mmol/L (8-16); Aspartate Amino Transferase 26 U/L (17-59); Bilirubin,Total 0.5 mg/dL (0.2-1.3); Blood Urea Nitrogen 11 mg/dL (9-20); Calcium 8.9 mg/dL (8.4-10.2); Carbon Dioxide 30 mmol/L (22-30); Chloride 104 mmol/L (98-107); Cholesterol 92 mg/dL (0-200); Estimated Glomerular Filt Rate > 60; Glucose 93 mg/dL (75-110); HDL Direct 47 mg/dL; Potassium 4.7 mmol/L (3.4-5.0); Sodium 139 mmol/L (137-145); Triglycerides 101 mg/dL (<150)
[2020-08-01 13:08] LABS: LDL Cholesterol Direct 31 mg/dL
[2020-08-01 13:27] LABS: Prostate Specific Antigen 0.3 ng/mL (< OR = 4.0)
--- NOTE | 2020-08-01 15:00 | NEURO_ITS ---
Patient Number: [id number] Impression: # Complains of numbness of hands. # Bilateral moderate Carpal Tunnel Syndrome. # No ulnar neuropathy. # Normal needle/EMG exam. Nerve Conduction Studies Anti Sensory Summary Table Stim Site NR Peak (ms) P-T Amp (?V) Site1 Site2 Delta-P (ms) Dist (cm) Alfredo (m/s) Left Median Anti Sensory (2-3nd Digit) Wrist 4.6 6.7 Wrist 2-3nd Digit 4.6 14.0 30 Wrist 4.4 7.5 Wrist 2-3nd Digit 4.6 14.0 30 Right Median Anti Sensory (2-3nd Digit) Wrist 6.8 4.0 Wrist 2-3nd Digit 6.8 14.0 21 Wrist 5.5 9.6 Wrist 2-3nd Digit 6.8 14.0 21 Left Radial Anti Sensory (Base 1st Digit) Wrist 2.4 15.2 Wrist Base 1st Digit 2.4 0.0 Right Radial Anti Sensory (Base 1st Digit) Wrist 2.4 13.4 Wrist Base 1st Digit 2.4 0.0 Left Ulnar Anti Sensory (5th Digit) Wrist 3.0 47.4 Wrist 5th Digit 3.0 14.0 47 Right Ulnar Anti Sensory (5th Digit) Wrist 2.8 26.4 Wrist 5th Digit 2.8 14.0 50 Motor Summary Table Stim Site NR Onset (ms) O-P Amp (mV) Site1 Site2 Delta-0 (ms) Dist (cm) Alfredo (m/s) Left Median Motor (Abd Poll Brev) Wrist 5.2 3.9 Elbow Wrist 5.3 31.0 58 Elbow 10.5 3.4 Right Median Motor (Abd Poll Brev) Wrist 5.2 2.1 Elbow Wrist 5.9 31.0 53 Elbow 11.1 1.8 Left Ulnar Motor (Abd Dig Minimi) Wrist 2.7 5.9 A Elbow Wrist 5.3 30.0 57 A Elbow 8.0 3.9 Right Ulnar Motor (Abd Dig Minimi) Wrist 2.7 4.5 A Elbow Wrist 5.6 31.0 55 A Elbow 8.3 3.4 F Wave Studies NR F-Lat (ms) L-R F-Lat (ms) Left Median (Mrkrs) (Abd Poll Brev) 32.01 0.47 Right Median (Mrkrs) (Abd Poll Brev) 32.48 0.47 Left Ulnar (Mrkrs) (Abd Dig Min) 32.33 2.79 Right Ulnar (Mrkrs) (Abd Dig Min) 29.54 2.79 EMG Side Muscle Nerve Root Ins Act Fibs Amp Dur Recrt Comment Right 1stDorInt Ulnar C8-T1 Nml Nml Nml Nml Nml Right Ext Indicis Radial (Post Int) C7-8 Nml Nml Nml Nml Nml Right Ext Digitorum Radial (Post Int) C7-8 Nml Nml Nml Nml Nml Right BrachioRad Radial C5-6 Nml Nml Nml Nml Nml Right PronatorTeres Median C6-7 Nml Nml Nml Nml Nml Right Abd Poll Brev Median C8-T1 Nml Nml Nml Nml Nml Left 1stDorInt Ulnar C8-T1 Nml Nml Nml Nml Nml Left Ext Indicis Radial (Post Int) C7-8 Nml Nml Nml Nml Nml Left Ext Digitorum Radial (Post Int) C7-8 Nml Nml Nml Nml Nml Left BrachioRad Radial C5-6 Nml Nml Nml Nml Nml Left PronatorTeres Median C6-7 Nml Nml Nml Nml Nml Left Abd Poll Brev Median C8-T1 Nml Nml Nml Nml Nml Right ABD Dig Min Ulnar C8-T1 Nml Nml Nml Nml Nml Left ABD Dig Min Ulnar C8-T1 Nml Nml Nml Nml Nml Right Anconeus Radial C7-8 Nml Nml Nml Nml Nml Right Brachialis Musculocut C5-6 Nml Nml Nml Nml Nml Left Anconeus Radial C7-8 Nml Nml Nml Nml Nml Left Brachialis Musculocut C5-6 Nml Nml Nml Nml Nml MTDD
== END 2020-08-01 12:05 | disposition home or self-care (01) ==
PROVIDERS: PCP Family Medicine; Visit Provider Family Medicine
DX: I25.10 Atherosclerotic heart disease of native coronary artery without angina pectoris (principal); Z12.5 Encounter for screening for malignant neoplasm of prostate; D68.0 Von Willebrand disease; Z86.73 Personal history of transient ischemic attack (TIA), and cerebral infarction without residual deficits; R20.0 Anesthesia of skin; G56.03 Carpal tunnel syndrome, bilateral upper limbs
CPT/HCPCS: 36415; 80053; 80061; 81241; 84153; 85025; 95886; 95911

== ENCOUNTER → 2021-07-01 13:30 | Outpatient (CLI) | payer MEDICARE, SELFPAY ==
--- NOTE | ~2021-07-01 | XR_ITS ---
EXAMINATION: XR lumbar spine 6V w bending EXAM DATE: 07/01/2021 14:07 INDICATION: M54.9 - Dorsalgia, unspecified. TECHNIQUE: Lumber spine frontal, lateral, bilateral oblique projections. Coned down frontal and lat eral L5-S1 lumbar projections for interpretation. Additional lateral flexion and lateral extension p rojections obtained. Correlation made to thoracic x-ray same date. FINDINGS: Bones are osteopenic. Please note that osteopenia limits sensitivity for detecting fractur es by radiographs. There is about 3 mm anterolisthesis L4 on L5 on all the lateral projections. Ther e is no spondylolysis suspected. There is severe lumbar facet arthropathy. Mild diffuse loss of lumba r vertebral body heights . There is moderate disc disease at L1-2, mild at the other lumbar levels. M ild aortic arteriosclerosis. Evaluation of the sacrum and transverse processes is somewhat limited d ue to overlying bowel gas. On one of the lateral projections, there is some cortical discontinuity at the T10 superior endplate, this compression fracture is age-indeterminate. This finding is not specifically visualized on the o ther lateral projections or on the thoracic x-ray obtained at same time. IMPRESSION: 1. Osteopenia and diffuse loss of vertebral body height with possibility of mild acute compression s uperior endplate of T10. 2. Severe lumbar facet arthropathy. 3. Grade 1 anterolisthesis L4 on L5. 4. L1-2 moderate disc disease. Reviewed, dictated and finalized at location B. IMPRESSION: 1. Osteopenia and diffuse loss of vertebral body height with possibility of mi ld acute compression superior endplate of T10. 2. Severe lumbar facet arthropathy. 3. Grade 1 anterolisthesis L4 on L5. 4. L1-2 moderate disc disease.
--- NOTE | ~2021-07-01 | XR_ITS ---
EXAMINATION: XR thoracic spine 3V DATE: 07/01/2021 14:07 INDICATION: Dorsalgia TECHNIQUE: 1. 3 views of the thoracic spine including standing AP, lateral and lateral swimmer's views were obta ined. 2. 6 views of the lumbar spine were obtained including standing AP, left and right oblique, 3 lateral views in neutral, flexion and extension and cone-down lateral lumbosacral view. COMPARISON: None. FINDINGS: Thoracic spine: Alignment is normal. Multiple chronic compression fractures with stable appearance of mild anterior w edging at T6-T12, sparing T8. Mild disc height loss and small endplate osteophytes at multiple levels throughout the thoracic spine. Moderate cervical spondylosis. A couple calcified nodules in the left lung consistent with old granulomatous disease. Heart size is normal. Median sternotomy wires and me diastinal surgical clips are seen, likely from prior coronary artery bypass grafting. Suture anchor f or rotator cuff repair at the left humeral head. Lumbar spine: 2 mm anterolisthesis L4 on L5 which is unchanged with flexion or extension. Normal alignment and chago on in the more cephalad lumbar spine. Lumbar vertebral body heights are normal. Moderate disc height loss at L1-L2 and minimal to mild disc height loss at the more caudal lumbar levels. No pars interart icularis defects. Moderate upper and severe lower lumbar facet osteoarthritis. IMPRESSION: 1. Mild thoracic spondylosis with multiple chronic mild mid to lower thoracic compression fractures. 2. Moderate lumbar spondylosis. Reviewed, dictated and finalized at location A. IMPRESSION: 1. Mild thoracic spondylosis with multiple chronic mild mid to lower thoracic c ompression fractures. 2. Moderate lumbar spondylosis.
== END ==
PROVIDERS: PCP Family Medicine; Visit Provider Family Medicine
DX: M85.88 Other specified disorders of bone density and structure, other site (principal); M47.896 Other spondylosis, lumbar region; M47.894 Other spondylosis, thoracic region
CPT/HCPCS: 72072; 72114

== ENCOUNTER 2021-07-29 13:44 | Outpatient (CLI) | payer MEDICARE, SELFPAY ==
[2021-07-29 14:48] LABS: Prostate Specific Antigen 0.4 ng/mL (< OR = 4.0)
[2021-08-04 00:18] LABS: Testosterone Free 34.9 pg/mL (30.0-135.0); Testosterone Total 309 ng/dL (250-1100)
== END 2021-07-29 13:45 | disposition home or self-care (01) ==
LOC: ANHLAB 13:45
PROVIDERS: PCP Family Medicine; Visit Provider Family Medicine
DX: Z12.5 Encounter for screening for malignant neoplasm of prostate (principal); S22.000S Wedge compression fracture of unspecified thoracic vertebra, sequela
CPT/HCPCS: 36415; 84153; 84402; 84403; G0103

== ENCOUNTER 2021-10-15 13:49 | Outpatient (CLI) | payer MEDICARE, SELFPAY ==
--- NOTE | ~2021-10-15 | DEXA_ITS ---
Bone Density Report Name: MELANIE SO Age: 71 Sex: Male Ethnicity: White Date of : 1950 Indication: height loss; rheumatoid arthritis; Referring Provider: JAZMIN BAUGH Study: Bone densitometry was performed. Exam Date: October 15, 2021 Accession number: [id number] Bone Density: Region BMD T-score Z-score Classification AP Spine (L1, L3, L4) 1.126 0.3 1.3 Normal Femoral Neck (Left) 0.628 -2.2 -1.0 Osteopenia Total Hip (Left) 0.725 -2.0 -1.3 Osteopenia Total Hip Bilateral Avg 0.665 -2.4 -1.7 Osteopenia Femoral Neck (Right) 0.581 -2.6 -1.3 Osteoporosis Total Hip (Right) 0.604 -2.8 -2.1 Osteoporosis World Health Organization criteria for BMD impression classify patients as: Normal (T-score at or above -1.0), Osteopenia (T-score between -1.0 and -2.5), or Osteoporosis (T-score at or below -2.5). 10-year Fracture Risk: FRAX not reported because: Some T-score for Spine Total or Hip Total or Femoral Neck at or below -2.5 Clinical Information Provided by Patient: Has rheumatoid arthritis Patient maximum height was 72 No regular weight bearing exercise Does not regularly consume dairy products Drinks caffeinated beverages Impression: The patient has osteoporosis, based on the Right Total Hip T-score. Discussion: HIGH RISK OF FRACTURE. BONE DENSITY IS UNDESIRABLY LOW AT ONE OR MORE SKELETAL SITES, CONSISTENT WITH OSTEOPOROSIS. ALSO, BONE DENSITY IS LOWER THAN EXPECTED FOR AGE, SEX AND RACE AT ONE OR MORE SKELETAL SITES; RECOMMEND A DILIGENT SEARCH FOR SECONDARY CAUSES OF BONE LOSS. This patient's lowest T-score meets the World Health Organization's (WHO) criteria for osteoporosis at one or more sites (T-score -2.5 or below). In untreated patients, the risk of osteoporotic fracture increases approximately two-fold for each 1.0 SD decrease in T-score. Low bone density is not the only risk factor for fracture; also consider factors such as patient's age, frailty or poor health, risk of falling, risk of injury, previous osteoporotic fracture, family history of osteoporosis, cigarette smoking, low body weight, etc. Not everyone with low bone mineral density has osteoporosis; osteomalacia and other metabolic bone disorders should also be considered. Patients who have osteoporosis should be evaluated for specific diseases and conditions (secondary causes) that may cause or contribute to bone loss. The National Osteoporosis Foundation (NOF) recommends pharmacologic intervention for men with BMD at this level (a T-score of -2.5 or below). Also, this patient's bone mineral density is below the range considered normal for healthy age-, sex and race-matched controls at least one site (Z-score -2.0 or below). This warrants careful evaluation for diseases and conditions that may contribute to accelerated bone loss. The patient christos
== END 2021-10-15 13:50 | disposition home or self-care (01) ==
LOC: ANHIMG 13:54
PROVIDERS: PCP Family Medicine; Visit Provider Family Medicine
DX: S22.000A Wedge compression fracture of unspecified thoracic vertebra, initial encounter for closed fracture (principal); X58.XXXA Exposure to other specified factors, initial encounter; M85.852 Other specified disorders of bone density and structure, left thigh; M85.851 Other specified disorders of bone density and structure, right thigh; M81.0 Age-related osteoporosis without current pathological fracture
CPT/HCPCS: 77080

== ENCOUNTER 2023-06-15 13:48 | Outpatient (CLI) | payer MEDICARE, SELFPAY ==
[2023-06-15 15:07] LABS: Erythrocyte Sedimentation Rate 6 mm/hr (0-20)
[2023-06-15 15:10] LABS: Rheumatoid Factor < 12.0 IU/ML (<12)
[2023-06-17 16:56] LABS: HLA B27 Negative (Negative)
== END 2023-06-15 13:49 | disposition home or self-care (01) ==
PROVIDERS: PCP Family Medicine; Visit Provider Family Medicine
DX: M47.812 Spondylosis without myelopathy or radiculopathy, cervical region (principal); M47.816 Spondylosis without myelopathy or radiculopathy, lumbar region
CPT/HCPCS: 36415; 85652; 86430; 86812

== ENCOUNTER 2023-11-23 12:40 | Outpatient (CLI) | payer MEDICARE, SELFPAY ==
[2023-11-23 13:34] LABS: Hematocrit 42.6 % (42.0-52.0); Mean Corpuscular HGB Conc 32.9 g/dl (32-36); Mean Corpuscular Hemoglobin 32.3 pg (26-34); Mean Corpuscular Volume 98.2 fl (80-100); Mean Platelet Volume 11.5 fl (7.4-10.4); Platelet Count Result 218 k/mm3 (150-375); Red Blood Count 4.34 M/mm3 (4.6-6.20); White Blood Count 12.4 K/mm3 (4.5-10.0)
[2023-11-23 13:46] LABS: Alanine Aminotransferase 21 U/L (6-50); Alkaline Phosphatase 56 U/L (38-126); Anion Gap 6 mmol/L (8-16); Aspartate Amino Transferase 33 U/L (17-59); Bilirubin,Total 0.9 mg/dL (0.2-1.3); Blood Urea Nitrogen 14 mg/dL (9-20); Calcium 9.1 mg/dL (8.4-10.2); Carbon Dioxide 26 mmol/L (22-30); Chloride 107 mmol/L (98-107); Cholesterol 121 mg/dL (0-200); Estimated Glomerular Filt Rate > 60; Glucose 83 mg/dL (65-110); HDL Direct 59 mg/dL; Potassium 4.2 mmol/L (3.4-5.0); Sodium 139 mmol/L (137-145); Triglycerides 120 mg/dL (<150); Uric Acid 3.4 mg/dL (3.5-8.5)
[2023-11-23 13:57] LABS: LDL Cholesterol Direct 48 mg/dL
[2023-11-23 14:14] LABS: Prostate Specific Antigen 0.5 ng/mL (< OR = 4.0); Thyroid Stimulating Hormone 0.962 uIU/mL (0.465-4.680)
== END 2023-11-23 12:41 | disposition home or self-care (01) ==
LOC: ANHLAB 12:44
PROVIDERS: PCP Family Medicine; Visit Provider Family Medicine
DX: Z12.5 Encounter for screening for malignant neoplasm of prostate (principal); E78.5 Hyperlipidemia, unspecified; I10 Essential (primary) hypertension; M10.9 Gout, unspecified
CPT/HCPCS: 36415; 80048; 80061; 80076; 84153; 84443; 84550; 85027; G0103

== ENCOUNTER 2025-05-23 14:43 | Observation (INO) | payer MEDICARE, SELFPAY ==
--- NOTE | ~2025-05-23 | XR_ITS ---
EXAMINATION: XR chest 2V DATE: 05/23/2025 17:29 INDICATION: AMS TECHNIQUE: Frontal and lateral images of the chest were obtained. COMPARISON: Chest radiograph dated 03/11/2020 FINDINGS: Cardiomediastinal silhouette is enlarged, unchanged. Median sternotomy wires are present. Lung volume s are low. Stable 6 calcified granuloma in the left upper lobe. Small opacities in the mid and lower lungs. IMPRESSION: 1. Small opacities in the mid and lower lung. Differential includes atelectasis/scarring or infiltrat es. Reviewed, dictated and finalized at location A. IMPRESSION: 1. Small opacities in the mid and lower lung. Differential includes atelectasis /scarring or infiltrates.
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
--- NOTE | ~2025-05-23 | CT_ITS ---
EXAMINATION: CT brain wo con DATE: 05/23/2025 17:31 INDICATION: AMS TECHNIQUE: Computed tomography (CT) of the head was performed without intravenous contrast. The dose- length product was 681.00 mGy-cm. COMPARISON: 03/07/2020 FINDINGS: No acute intracranial hemorrhage. No mass effect. No hydronephrosis. There are a few small low density regions scattered throughout the white matter which may be due to c hronic ischemic white matter change. The findings are similar to the study from 2019. Cerebral atrophy appropriate for the patient's age similar to the prior study. Partial opacification of the paranasal sinuses. Mastoid air cells are clear IMPRESSION: 1. No acute intracranial hemorrhage. No mass effect. 2. Probable chronic ischemic white matter change. 3. Cerebral atrophy appropriate for the patient's age. Reviewed, dictated and finalized at location A.
--- NOTE | ~2025-05-23 | MR_ITS ---
EXAMINATION: MR brain/brain stem wo/w con DATE: 05/24/2025 13:25 INDICATION: tia, ams TECHNIQUE: Magnetic resonance imaging (MRI) of the brain and brainstem was performed with 19 ml Multi renzo intravenous contrast. Sequences included sagittal T1, axial T1 FSE, axial DWI, axial 3-D swan, axial T2 FLAIR, and axial T2 Propeller. Postcontrast axial and coronal T1-weighted FSE was obtained. Apparent diffusion coefficient (ADC) maps and axial eADC, 3D SWAN, and MinIP sequences were created. COMPARISON: 08/15/2019; CT brain and CTA brain carotid 05/23/2025. FINDINGS: No abnormal restricted diffusion to suggest acute ischemic infarct. No MRI evidence of hemorrhage or extra-axial collection. No suspicious foci of susceptibility to suggest prior intraparenchymal hemorr marky. Moderate patchy white matter hyperintensity, likely representing moderate small vessel ischemic disease. Mild generalized parenchymal volume loss. The basilar cisterns are patent. Flow voids are p reserved. Right maxillary retention cyst/polyp. Nodular mucosal thickening in the left maxillary, eth moid, and sphenoid sinuses. Left lens replacement, otherwise the globes and orbital contents are with in normal limits. Enlarged liver right upper anterior cervical chain lymph node. IMPRESSION: No acute intracranial abnormality Reviewed, dictated and finalized at location K.
--- NOTE | ~2025-05-23 | CT_ITS ---
EXAMINATION: CTA brain carotid DATE: 05/23/2025 18:33 INDICATION: cva w/u, missing time this am TECHNIQUE: Computed tomographic angiography (CTA) of the head and neck was performed with 100 mL Omni paque-350 intravenous contrast. Automated exposure control and iterative reconstruction technique wer e employed. The dose-length product was 1113.94 mGy-cm. Maximum intensity projection and volume rende red 3D-reconstructions were created by the technologist on a separate workstation. COMPARISON: 08/02/2018; MR brain 08/15/2019; CT brain 05/23/2025; x-ray chest 05/23/2025. FINDINGS: CTA HEAD: No large vessel occlusion, aneurysm, high flow vascular malformation, nidus or extravasation. Hypopla stic or absent left A1 segment. Normal left MARGARITO flow maintained via the anterior communicating artery . Hypoplastic or absent left P1 segment. Small left posterior communicating artery, with severe focal stenosis. Slow flow maintained in the left posterior circulation via small caliber posterior cerebra l arteries. Patent cerebral veins. Prominence of the left ventricle atrium. Small areas of encephalom alacia in the left temporoparietal and occipital lobes. Left lens replacement. Right maxillary retent ion cyst/polyp. Nodular mucosal thickening in the left maxillary sinus. Bilateral ethmoid mucosal thi ckening. CTA NECK: Aortic arch and proximal great vessels: Normal arch anatomy. Atherosclerotic calcifications at the vi sualized aortic arch and proximal great vessels. Right common carotid, carotid bifurcation, and internal carotid artery: Calcified atherosclerotic matt que at the carotid bifurcation.There is 0% stenosis of the proximal right internal carotid artery rel ative to normal distal artery lumen diameter (NASCET criteria). Left common carotid, carotid bifurcation, and internal carotid artery: Calcified atherosclerotic plaq ue at the carotid bifurcation.There is 0% stenosis of the proximal left internal carotid artery relat jana to normal distal artery lumen diameter (NASCET criteria). Vertebral arteries: No significant plaque or stenosis. Left vertebral artery is dominant. Other findings: Calcified right upper lobe granuloma. Incompletely visualized focus of atelectasis/co nsolidation in the left lower lobe. Osteopenia. Multilevel degenerative listheses in the cervical spi ne. Cervical spine degenerative disc disease and facet arthropathy with multilevel neural foraminal n arrowing. No severe central canal narrowing. IMPRESSION: No large vessel intracranial occlusion or aneurysm. 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 Slow flow is maintained in the left posterior circulation. No carotid or vertebral artery occlusion, dissection, or significant stenosis. Subsegmental left lower lobe atelectasis/consolidation. Reviewed, dictated and finalized at location K. IMPRESSION: No large vessel intracranial occlusion or aneurysm. High-grade stenosis in the left posterior communicating artery which supplies t he left posterior circulation. Slow flow is maintained in the left posterior ci rculation. No carotid or vertebral artery occlusion, dissection, or significant stenosis. Subsegmental left lower lobe atelectasis/consolidation.
--- OUTSIDE RECORDS SUMMARY | 2025-05-23 14:47 | XMS_ITS | Clinical Summary ---
Author Organization [facility] Address [address] [place] [address] Care Team Providers Care Signals Analyst Name Role Phone Donte Chung MD Primary Care Provider [phone] Andrea Mariscal MD Unavailable Allergies Active Allergy Reactions Criticality Noted Date Comments Tape Other (see comment) 05/20/2018 blisters Medications HYDROcodone-acet aminophen 10-325 MG tabletIndication s:Chronic Pain Take 1 tablet by mouth every 3 (three) hours as needed for Pain (No more than 8 tabs per day.). Indications: Chronic Pain 0 Active nitroglycerin 0.[address] 0.4 mg under the tongue every 5 (five) minutes as needed for Chest Pain. Active lisinopril 40 MG tablet Take 40 mg by mouth daily. Active isosorbide mononitrate ER 60 MG 24 hr tablet Take 60 mg by mouth daily. Active citalopram 20 MG tablet Take 20 mg by mouth daily. Active atorvastatin 80 MG tablet Take 80 mg by mouth daily. Active allopurinol 300 MG tablet Take 300 mg by mouth daily. Active amLODIPine 10 MG tablet Take 10 mg by mouth daily. Active NARCAN 4 MG/0.1ML nasal spray 1 Dose by Nasal route as needed for Opioid reversal. 0 Active pantoprazole EC 40 MG tablet Take 40 mg by mouth 2 (two) times daily. 0 Active traZODone 50 MG tablet Take 50 mg by mouth nightly at bedtime. 0 Active LORazepam 0.5 MG tablet Take 1 tablet (0.5 mg total) by mouth 2 (two) times daily as needed for Anxiety. 1 tablet 0 Active Additional Information Patient taking differently:0.5 mg Oral3 times daily PRN, Anxiety, Reported on 03/05/2021 XARELTO 20 MG Tab tablet Take 20 mg by mouth daily with supper. 1 Active zolpidem CR 12.5 MG tablet Take 12.5 mg by mouth nightly at bedtime. 1 Active metoprolol succinate ER 25 MG 24 hr tablet Take 2 tablets (50 mg total) by mouth 2 (two) times daily. 60 tablet 1 1 Active tiZANidine 4 MG tablet Take 4 mg by mouth as needed. 2 Active pregabalin 75 MG capsule Take 75 mg by mouth 2 (two) times daily. 1 Active Active Problems Problem Noted Date Diagnosed Date Chest pain 09/16/2020 Acute encephalopathy 03/16/2020 Encephalopathy 03/15/2020 Unstable angina pectoris ([facility] 05/20 Family History Medical History Relation Comments Early Brother Relation Status Comments Brother Social History Tobacco Use Types Packs/Day Years Used Date Smoking Tobacco: Never Smokeless Tobacco: Never Alcohol Use Standard Drinks/Week Comments Not Currently 0 (1 standard drink = 0.6 oz pur e alcohol) Overall Financial Resource Strain (CARDIA) Answe r Date Recorded How hard is it for you to pa y for the very basics like food, housing, medical care, and heating? Not hard at all 09/16/2020 [facility] [place] [facility] Occupat ional Health - Occupational Stress Questionnaire Answer Date Recorded Do you feel stress - tense, restless, nervous, or anxious, or unable to sleep at night because your mind is troubled all the time - these days? Not at all 09/16/2020 Exercise Vital Sign Answer Date Recorde d On average, how many days pe r week do you engage in moderate to strenuous exercise (like a brisk walk)? 0 days 09/16/2020 On average, how many minutes do you engage in exercise at this level? 0 min 09/16/2020 Hunger Vital Sign Answer Date Recorded Within the past 12 months, y ou worried that your food would run out before you got the money to buy more. Never true 09/16/20 20 Within the past 12 months, t he food you bought just didn't last and you didn't have money to get more. Never true 09/16/2020 PRAPARE - Transportation Answer Date Re corded In the past 12 months, has l ack of transportation kept you from medical appointments or from getting medications? No 04/2020 In the past 12 months, has l ack of transportation kept you from meetings, work, or from getting things needed for daily living? No 09/16/2020 Sex and Gender Information Value Date Recorded Sex Assigned at Male 09/17/2020 12:11 AM RESIN COATER Legal Sex Male 3:15 AM CDT Gender Identity Male 09/17/2020 12:11 AM RESIN COATER Sexual Orientation Not on file Last Filed Vital Signs Vital Sign Reading Time Taken Comments Blood Pressure 181/90 10/20/2022 3:00 AM RESIN COATER Pulse 54 10/20/2022 5:15 AM RESIN COATER Temperature 36.3 C (97.4 F) 10/19/2022 11:08 PM RESIN COATER Respiratory Rate 15 10/20/2022 5:15 AM RESIN COATER Oxygen Saturation 96% 10/20/2022 5:15 AM RESIN COATER Inhaled Oxygen Concentration - - Weight 102.1 kg (225 lb) 10/19/2022 11:08 PM RESIN COATER Height 175.3 cm (5' 9) 10/19/2022 11:08 PM RESIN COATER Body Mass Index 33.23 10/19/2022 11:08 PM RESIN COATER Plan of Treatment Health Maintenance Due Date Last Done Comments ASCVD Statin 1950 Hepatitis C 1967 DTaP, Tdap and Td Vaccines ( 1 - Tdap) 01/25/1968 Zoster Vaccines (1 of 2) 1999 Annual Medicare Wellness Visit 2014 Pneumococcal Vaccine: 50+ Years (2 of 2 - PPSV23) 09/24/2020 07/30/2020 ASCVD LDL 03/05/2022 03/05/2021, 09/17/2020 RSV Immunization or 60+ Years (1 - 1-dose 75+ series) 01/25/2024 COVID-19 Vaccine ( - 2023-2 5 season) 2024 Meningococcal B Vaccine Aged Out No l onger eligible based on patient's age to complete this topic Meningococcal Vaccine Aged Out No oswaldo estela eligible based on patient's age to complete this topic RSV Immunizations Under 20 Months Aged Out No longer eligible b ased on patient's age to complete this topic Goals Goal Patient Goal Type Associated Problems Recent Progress Patient-Stated? Author Health - patient able to perform ADLs independently General No Malia Buckner RN Procedures Procedure Name Priority Date/Time Associated Diagnosis Comments LIPID PANEL STAT 03/05/2021 5:30 AM CDT from Last 3 Months or Most Recently Relevant to Health Maintenance Results * LIPID PANEL (03/05/2021 5:30 AM CDT) CHOLESTEROL 100 <200 MG/DL 03/05/2021 7:03 AM CDT [facility] TRIGLYCERIDES 89 <150 MG/DL 03/05/2021 7:03 AM CDT [facility] HDL 56 >40.0 MG/DL 03/05/2021 7:03 AM CDT [facility] LDL (CALCULATED) 26 <100 MG/DL 03/05/20 7:03 AM CDT [facility] NON HDL CHOLESTEROL 44 <130 MG/DL 03/05 7:03 AM T [facility] CHOL/HDL RATIO 1.8 0.0 - 4.5 03/05/2021 7:03 AM T [facility] VLDL CALCULATION 18 5 - 55 MG/DL 03/05/2021 7:03 AM T [facility] LIPID INTERPRETATION 03/05/2021 7:03 AM T [facility] Comment: NIH CONCENSUS REPORT RECOMMENDATIONS: ADULT CHILD LOW RISK: CHOLESTEROL <200 <170 TRIGLYCERIDE <150 --- HDL >=60 --- LDL <100 <110 BORDERLINE: CHOLESTEROL 200-239 170-199 TRIGLYCERIDE 150-199 --- HDL 40-59 --- LDL 100-159 110-129 HIGH RISK: CHOLESTEROL >=240 >=200 TRIGLYCERIDE >=200 --- HDL <40 --- LDL >=160 >=130 03/05/2021 5:30 AM CDT Dottie Iglesias MARKETING SALES MANAGER LABORATORY Final Resul t [facility] [address] [place] [address], from Last 3 Months or Most Recently Relevant to Health Maintenance Insurance Advance Directives Documents on File Type Date Recorded Patient Janitor Head Expl anation Advance Directives and Living Will 03/18/2020 11:32 AM 05/24/16 HEALTHCARE P OA Advance Directives and Living Will 05/23/2016 POWER OF DRIVERS' CASH CLERK * Full Code (Latest Code Status on File) Date Activated Date Inactivated Comments 03/05/2021 3:27 PM 03/06/2021 1:42 PM * Full Code Date Activated Date Inactivated Comments 09/16/2020 10:57 PM 09/17/2020 4:39 PM * Full Code Date Activated Date Inactivated Comments 03/16/2020 1:50 AM 03/18/2020 9:46 PM Care Teams Signals Analyst Relationship Specialty Start Date End Date Donte Chung MD [address] [address] PCP - General FAMILY PRACTICE 03/11/16 Andrea Mariscal MD [address] [place] [id number] [place] Triple Drum Operator CARDIOVASCULAR DISEASE 03/11/16
--- OUTSIDE RECORDS SUMMARY | 2025-05-23 14:47 | XMS_ITS | Encounter Summary ---
Author Organization [facility] Address [address] [place] [address] Care Team Providers Care Landing Scaler Name Role Phone Donte Chung MD Primary Care Provider [phone] Andrea Mariscal MD Unavailable Encounter Details Date Type Department Care Team (Late st Contact Info) Description 03/19/2020 Hospital Follow-up Call [facility] [place] [address] Diana Sidhu RN Social History Tobacco Use Types Packs/Day Years Used Date Smoking Tobacco: Unknown Sex and Gender Information Value Date Recorded Sex Assigned at Male 09/17/2020 12:11 AM ASSISTANT PROFESSOR OF SPANISH Legal Sex Male 3:15 AM CDT Gender Identity Male 09/17/2020 12:11 AM ASSISTANT PROFESSOR OF SPANISH Sexual Orientation Not on file COVID-19 Exposure Response Date Recorded In the last month, have you been in contact with someone who was confirmed or suspected to have Coronavirus / COVID-19? No / Unsure 03/15/2020 9:09 PM CDT documented as of this encounter Plan of Treatment Not on file documented as of this encounter Visit Diagnoses Not on filedocumented in this encounter Care Teams Landing Scaler Relationship Specialty Start Date End Date Donte Chung MD [address] [place], [place] [id number] PCP - General FAMILY PRACTICE 03/11/16 Andrea Mariscal MD [address] [place] [address] Mariana Boiler House Mechanic CARDIOVASCULAR DISEASE 03/11/16 documented as of this encounter
--- OUTSIDE RECORDS SUMMARY | 2025-05-23 14:48 | XMS_ITS | Patient Health Record ---
Author Organization [facility] Address [address] [address] Care Team Providers Care Technical Maintenance Technician Name Role Phone Sheldon MCKEON, Donte Primary Care Provider VENKATESH Rojas Unavailable [phone] Allergies No Known Allergies Reason For Referral No Information Medications Medication SIG (Take, Route, Frequency, Duration) Notes Start Date End Date Status Atorvastatin Calcium 80 MG 1 tablet Oral ly Once a day; Duration: 30 day(s) Active Pantoprazole Sodium 40 MG 1 tablet Orall y Once a day; Duration: 30 day(s) Active Allopurinol 300 MG 1 tablet Orally Once a day Active Pregabalin 75 MG 1 capsule Orally Twi ce a day Active Citalopram Hydrobromide 10 MG 2 tablets Orally Once a day Active HYDROcodone-Acetaminophen 10-325 MG 1 tablet as needed Orally every 6 hrs Active traZODone HCl 50 MG 1 tablet at bedtime as needed Orally Once a day; Duration: 30 day(s) Active Metoprolol Succinate ER 25 MG 1 tablet Orally Once a day; Duration: 30 day(s) Active LORazepam 0.5 MG 1 tablet at bedtime as needed Orally Once a day Active Lisinopril 40 MG 1 tablet Orally Once a day; Duration: 30 day(s) Active Nitroglycerin 0.4 MG as directed Sublingual Active Xarelto 20 MG 1 tablet Orally Twic e a day 09/19/2019 Active tiZANidine HCl 4 MG 1 tablet as needed Orally Three times a day Active Zolpidem Tartrate 10 MG 1 tablet at bedt katerina as needed Orally Once a day Active Isosorbide Mononitrate ER 60 MG 1 tablet in the morning Orally Once a day; Duration: 30 day(s) Active amLODIPine Besylate 10 MG 1 tablet Orall y Once a day; Duration: 30 day(s) Active Social History Tobacco Use: Social History Observation Description Date Details (start date - stop date) Never Smoker NA - NA Tobacco Use/Smoking Question Answer Notes Are you a nonsmoker Alcohol Screen (Audit-C) Question Answer Notes Did you have a drink containing alcohol in the p ast year? 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 (379069653932308) Coronary artery disease involving huslia coronary artery of huslia heart without angina pectoris (I25.10) Active confirmed Problem Peripheral vascular disease (538041836) PAD (peripheral artery disease) (I73.9) Active confirmed Problem Obesity (023903233) Obesity determined by physical examination (E66.9) Active confirmed Vital Signs Heart Rate 89 /min 07/20/2024 Respiratory Rate 16 /min 07/20/2024 Blood pressure diastolic 80 mm Hg 07/20/2024 Height 71 in 07/20/2024 Blood pressure systolic 142 mm Hg 07/20/2024 Weight 227.4 lbs 07/20/2024 BMI 31.71 kg/m2 07/20/2024 Encounters Encounter Location Date Provider Diagnosis [facility] [address] [facility] [address] [place] [address] 07/27/2024 VENKATESH KOEHLER [facility] [address] [facility] [address] [place], [place] [id number] 08/08/2024 VENKATESH KOEHLER [facility] [address] [facility] [address] [place], [place] [id number] 08/08/2024 VENKATESH KOEHLER [facility] [address] [facility] [address] [place], [place] [id number] 08/08/2024 VENKATESH KOEHLER [facility] [address] [address] 07/20/2024 VENKATESH KOEHLER Numbness in both hands R20.0 ; Coronary artery disease involving huslia coronary artery of huslia heart without angina pectoris I25.10 ; Dyslipidemia E78.5 and Dyspnea on effort R06.00 [facility] [address] [address] 07/31/2024 VENKATESH KOEHLER [facility] [address] [address] 07/27/2024 VENKATESH KOEHLER [place] [address] [facility] [address] [place], [place] [id number] 08/07/2024 VENKATESH KOEHLER Assessments Encounter Date Diagnosis (ICD Code) Assessment Notes Treatment Notes Treatment Clinical Notes Section Notes 07/20/2024 Numbness in both hands (ICD-10 - R20.0) 07/20/2024 Coronary artery disease involving huslia coronary artery of huslia heart without angina pectoris (ICD-10 - I25.10) 07/20/2024 Dyslipidemia (ICD-10 - E78.5) 07/20/2024 Dyspnea on effort (ICD-10 - R06.00) Has dyspnea,but pt minimizes it,has cad,will benefit from test,ekg in the past abnormal,but he is not interested in nuc test Plan Of Treatment No Information Insurance Providers Payer Name Payer Address Payer Phone Subscriber Number Group Number Insured Name Patient Relationship to Insured Coverage Start Date Coverage End Date [employer] [address] [address] [address] [place], [place] [id number] Hollis Gentile Self - patient is the insured Medical (General) History Medical History History ICD Code CAD,HTN,Dyslipidemia,Obesity ,Depression,Insomnia,Tooth abcess,von wielebrand's disease Surgical History Surgery Date(Month/Year) Coronary artery bypass graft-[facility] to lad
--- OUTSIDE RECORDS SUMMARY | 2025-05-23 14:48 | XMS_ITS ---
Author Organization [facility] Address [address] [facility] [address] [place] [address] Care Team Providers Care Bottle Inspector Name Role Phone Sheldon MCKEON, Donte Primary Care Provider VENKATESH Rojas Unavailable [phone] REASON FOR VISIT ls Encounters Encounter Location Date Provider Diagnosis [facility] [address] [facility] [address] [place], [place] [id number] 08/08/2024 VENKATESH KOEHLER Plan Of Treatment No Information Progress Notes * Hollis GENTILE RDOB:[birth year] (75 yo M)Acc No.[id number]:08/08/2024 Patient: Hollis YOUNGER Provider: Don Koehler MD :1950 A ge:74 Y S ex:Male Date:08/08/2024 [address] [facility] [id number] Pcp:Donte Chung MD Subjective: * Chief Complaints: * 1 . Ls. * Medical History: Objective: * Vitals: Assessment: Plan: * Treatment: * * Electronic signature of MARK KOEHLER MD on 05/23/2025 at 02:47 PM CDT Sign off status: Pending * Provider: Don Koehler MD Date: 1 Generated for Deborahi david/Faalyg/eTransmitting on: 0 05/23/2025 02:47 PM CDT
--- OUTSIDE RECORDS SUMMARY | 2025-05-23 14:48 | XMS_ITS ---
Author Organization [facility] Address [address] [facility] [address] [place] [address] Care Team Providers Care Watch Parts Grinder Name Role Phone Sheldon MCKEON, Donte Primary Care Provider VENKATESH Rojas Unavailable [phone] REASON FOR VISIT echo Encounters Encounter Location Date Provider Diagnosis [facility] [address] [facility] [address] [place], [place] [phone] 08/08/2024 VENKATESH KOEHLER Plan Of Treatment No Information Progress Notes * Hollis GENTILE RDOB:[birth year] (75 yo M)Acc No.[id number]:08/08/2024 Patient: Hollis YOUNGER Provider: Don Koehler MD :1950 A ge:74 Y S ex:Male Date:08/08/2024 [address] [facility] Pcp:Donte Chung MD Subjective: * Chief Complaints: * 1 . Echo. * Medical History: Objective: * Vitals: Assessment: Plan: * Treatment: * * Electronic signature of MARK KOEHLER MD on 05/23/2025 at 02:48 PM CDT Sign off status: Pending * Provider: Don Koehler MD Date: 1 Generated for Deborahi ng/Faalyg/eTransmitting on: 0 05/23/2025 02:48 PM CDT
--- OUTSIDE RECORDS SUMMARY | 2025-05-23 14:48 | XMS_ITS | Clinical Summary ---
Author Organization [facility] Address [address] [place] [address] Care Team Providers Care Ux Design Manager Name Role Phone Donte Chung MD Primary Care Provider [phone] Allergies Active Allergy Reactions Criticality Noted Date Comments Adhesive Tape-Silicones Other (See Comments),Rash 05/20/2018 blisters blisters Medications allopurinoL (ZYLOPRIM) 300 mg tablet Take 300 mg by mouth daily. 07/17/2020 Active amLODIPine (NORVASC) 10 mg tablet Take 10 mg by mouth daily. 07/24/2020 Active atorvastatin (LIPITOR) 80 mg tablet Take 80 mg by mouth. 07/03/2020 Active busPIRone (BUSPAR) 15 mg Tablet TAKE ONE TABLET BY MOUTH THREE TIMES DAILY 07/16/2020 Active citalopram (CeleXA) 20 mg tablet Take 20 mg by mouth daily. 06/19/2020 Active ferrous sulfate 325 mg (65 mg iron) tablet Take 325 mg by mouth. 03/18/2020 Active gabapentin (NEURONTIN) 100 mg capsule TAKE ONE CAPSULE BY MOUTH THREE TIMES DAILY 07/24/2020 Active HYDROcodone-kristin taminophen (NORCO) 10-325 mg Tablet TAKE ONE TABLET BY MOUTH EVERY 4 HOURS NEEDED FOR PAIN 07/24/2020 Active lisinopriL (PRINIVIL) 40 mg tablet Take 40 mg by mouth daily. 06/19/2020 Active LORazepam (ATIVAN) 0.5 mg tablet TAKE ONE TABLET BY MOUTH THREE TIMES DAILY NEEDED FOR ANXIETY 07/06/2020 Active metoprolol succinate (TOPROL XL) 25 mg Extended Release 24 hour tablet Take 25 mg by mouth daily. 07/16/2020 Active nitroglycerin (NITROSTAT) 0.4 mg Tablet, Sublingual DISSOLVE 1 TABLET UNDER THE TONGUE EVERY 5 MINUTES NEEDED FOR CHEST PAIN. DO NOT EXCEED A TOTAL OF 3 DOSES IN 15 MINUTES. 07/22/2020 Active pantoprazole (PROTONIX) 40 mg Tablet, Delayed Release (E.C.) TAKE ONE TABLET BY MOUTH TWICE DAILY 07/17/2020 Active traZODone (DESYREL) 50 mg tablet TAKE ONE TABLET BY MOUTH AT BEDTIME 07/14/2020 Active zolpidem (AMBIEN CR) 12.5 mg Controlled Release tablet TAKE ONE TABLET BY MOUTH at bedtime 07/16/2020 Active rivaroxaban (Xarelto) 10 mg TabletIndicatio ns:Von Willebrand disease, type I (CMS/HCC),Histo ry of TIA (transient ischemic attack) and stroke Take 1 Tablet (10 mg) by mouth daily with supper. 30 Tablet 3 08/05/2020 Active Active Problems No known active problems Social History Tobacco Use Types Packs/Day Years Used Date Smoking Tobacco: Former Cigarettes 0.5 25 1 - 07/31/1968 Smokeless Tobacco: Never Tobacco Cessation:Counseling Given: No Alcohol Use Standard Drinks/Week Comments Never 0 (1 standard drink = 0.6 oz pur e alcohol) Sex and Gender Information Value Date Recorded Sex Assigned at Not on file Legal Sex Male 11:53 PM CDT Gender Identity Not on file Sexual Orientation Not on file Last Filed Vital Signs Vital Sign Reading Time Taken Comments Blood Pressure 130/69 07/31/2020 11:25 AM CDT Pulse 67 07/31/2020 11:25 AM CDT Temperature 36.8 C (98.2 F) 07/31/2020 11:25 AM CDT Respiratory Rate - - Oxygen Saturation 95% 07/31/2020 11: 25 AM CDT Inhaled Oxygen Concentration - - Weight 105.3 kg (232 lb 3.2 oz) 020 11:25 AM CDT Height 181.6 cm (5' 11.5) 07/31/2020 1 1:25 AM CDT Body Mass Index 31.93 07/31/2020 11:25 AM CDT Plan of Treatment Health Maintenance Due Date Last Done Comments DTAP/TDAP/TD VACCINES (1 - Tdap) 01/25/1968 PNEUMOCOCCAL VACCINE 50+ YEARS (1 of 1 - PCV) 01/24/19 99 ZOSTER VACCINE (1 of 2) 1999 RSV VACCINE (60+ or ) (1 - 1-dose 75+ series) 01/25/2024 INFLUENZA VACCINE (#1) 2025 Care Teams Ux Design Manager Relationship Specialty Start Date End Date Donte Chung MD [address] [place] [address] PCP - General Family Practice 11/22/19
--- OUTSIDE RECORDS SUMMARY | 2025-05-23 14:48 | XMS_ITS | Clinical Summary ---
Author Organization [facility] Address [address] [place] [address] Care Team Providers Care Surveyor Instrument Assistant Name Role Phone Unavailable Primary Care Provider Unavailabl e Source Comments [facility],non-owned Affiliates and Associated Physician Practices is amultiple site organization consisting of ambulatory clinics and hospital sitesin [place], [place], [place] and [place]. This disclosure is being madepursuant to the Care Everywhere program and may not contain all information available regarding this patient. Last updated 18.[facility] Allergies Active Allergy Reactions Criticality Noted Date Comments Adhesive Sensitivity Other 05/20/2018 blisters Medications * Be aware that medications may not be up to date on this document. Alwaysverify current medications with the patient. HYDROcodone-kristin taminophen (NORCO) 10-325 MG tablet Take 2 tablets by mouth every 3 hours as needed for Pain Active LORazepam (ATIVAN) 0.5 MG tablet Take 0.5 mg by mouth every 8 hours as needed for Anxiety Active busPIRone (BUSPAR) 15 MG tablet Take 15 mg by mouth 3 times daily Active citalopram (CELEXA) 20 MG tablet Take 20 mg by mouth once daily Active allopurinol (ZYLOPRIM) 300 MG tablet Take 300 mg by mouth once daily Active zolpidem CR (AMBIEN CR) 12.5 MG tablet Take 12.5 mg by mouth at bedtime Active traZODone (DESYREL) 50 MG tablet Take 50 mg by mouth at bedtime Active Active Problems Problem Noted Date Diagnosed Date Unstable angina pectoris 05/20/2018 Social History Tobacco Use Types Packs/Day Years Used Date Smoking Tobacco: Never Smokeless Tobacco: Never Alcohol Use Standard Drinks/Week Comments No 0 (1 standard drink = 0.6 oz pur e alcohol) Sex and Gender Information Value Date Recorded Sex Assigned at Not on file Legal Sex Male 6:16 AM HR SHARED SERVICES CONSULTANT Gender Identity Not on file Sexual Orientation Not on file Last Filed Vital Signs Vital Sign Reading Time Taken Comments Blood Pressure 119/80 05/21/2018 11:28 AM CDT Pulse 62 05/21/2018 11:28 AM CDT Temperature 36.9 C (98.4 F) 05/21/2018 11:28 AM CDT Respiratory Rate 18 05/21/2018 11:2 8 AM CDT Oxygen Saturation 95% 05/21/2018 11: 28 AM CDT Inhaled Oxygen Concentration - - Weight 99.2 kg (218 lb 12.8 oz) 05/21/2018 4:20 AM CDT Height - - Body Mass Index - - Plan of Treatment Health Maintenance Due Date Last Done Comments HEPATITIS C SCREENING 01/20/1967 DTAP/TDAP/TD VACCINES (1 - Tdap) 01/25/1968 PNEUMOCOCCAL VACCINE 50+ (1 of 1 - PCV) 1999 ZOSTER VACCINE (1 of 2) 1999 Respiratory Syncytial Virus (RSV) Vaccine Pt: or over 60 yrs (1 - 1-dose 75+ series) 01/25/2024 COVID-19 VACCINE ( - 2023-2 5 season) 2024 DEPRESSION SCREENING 10/11/2024 INFLUENZA VACCINE (#1) 2025 HEPATITIS B VACCINE Aged Out No longe r eligible based on patient's age to complete this topic HIB VACCINE Aged Out No longer eligi ble based on patient's age to complete this topic HPV VACCINE Aged Out No longer eligi ble based on patient's age to complete this topic MENINGOCOCCAL (Group B) VACC INE SHARED DECISION-MAKING Aged Out No longer eligibl e based on patient's age to complete this topic MENINGOCOCCAL GROUPS A/C/Y/W VACCINE Aged Out No longer eligible b ased on patient's age to complete this topic Insurance [facility] Advance Directives * Full Code (Latest Code Status on File) Date Activated Date Inactivated Comments 05/20/2018 4:58 PM 05/21/2018 6:05 PM * Full Code Date Activated Date Inactivated Comments 05/20/2018 4:00 PM 05/20/2018 4:58 PM
--- OUTSIDE RECORDS SUMMARY | 2025-05-23 14:49 | XMS_ITS ---
Author Organization [facility] Address [address] [place] [address] Care Team Providers Care Collection Officer Name Role Phone Sheldon MCKEON, Donte Primary Care Provider VENKATESH Rojas Unavailable [phone] REASON FOR VISIT stress and echo follow up Encounters Encounter Location Date Provider Diagnosis [facility] [address] [facility] [address] [place], [place] [id number] 08/08/2024 VENKATESH KOEHLER Plan Of Treatment No Information Progress Notes * Hollis GENTILE RDOB:[birth year] (75 yo M)Acc No.[id number]:08/08/2024 Patient: Hollis YOUNGER Provider: Don Koehler MD :1950 A ge:74 Y S ex:Male Date:08/08/2024 Address:[address] [facility] Pcp:Donte Chung MD Subjective: * Chief Complaints: * 1 . Stress and echo follow up. * Medical History: Objective: * Vitals: Assessment: Plan: * Treatment: * * Electronic signature of MARK KOEHLER MD on 05/23/2025 at 02:48 PM CDT Sign off status: Pending * Provider: Don Koehler MD Date: Generated for Venkat hernandez/Sumi/eTransmitting on: 0 05/23/2025 02:48 PM CDT
[2025-05-23 15:08] VITALS: BP 134/74; PULSE 84; RESP 16; TEMP 36.4; O2SAT 93
[2025-05-23 16:18] VITALS: BP 136/75; PULSE 77; RESP 16; O2SAT 96
--- NOTE | 2025-05-23 16:30 | PC.NURSE ---
Pt. asked for a urine sample. Pt. states I just drained my bladder before coming back to this room. Pt. did not give a urine sample when using the restroom.
--- NOTE | 2025-05-23 17:05 | ECG_ITS ---
Test Date: 2025-05-23 18:07:18 Measurements Intervals [place] Rate: 79 P: 17 AL: 213 QRS: 53 QRSD: 150 T: 19 QT: 408 QTc: 469 Interpretive Statements SINUS RHYTHM WITH FIRST DEGREE AV BLOCK RIGHT BUNDLE BRANCH BLOCK BASELINE ARTIFACT- I, III, AVR, AVL, AVF, V4-V6 ABNORMAL ECG No previous ECG available for comparison Electronically Signed On 05-23-2025 18:59:28 CDT by Eloy Villegas D.O.
--- NOTE | 2025-05-23 17:28 | PC.NURSE ---
Pt. continues to be unable to urinate. Pt. refused straight cath.
--- NOTE | 2025-05-23 17:32 | PC.NURSE ---
Pt. able to ambulate to bathroom independently.
[2025-05-23 17:45] LABS: Hematocrit 36.0 % (42.0-52.0); Hemoglobin 10.7 g/dL (14.0-18.0); Mean Corpuscular HGB Conc 29.7 g/dl (32-36); Mean Corpuscular Hemoglobin 24.3 pg (26-34); Mean Corpuscular Volume 81.8 fl (80-100); Platelet Count Result 268 k/mm3 (150-375); Red Blood Count 4.40 M/mm3 (4.6-6.20); White Blood Count 15.2 K/mm3 (4.5-10.0)
[2025-05-23 17:47] LABS: Add Urine Microscopic? NO; Appearance Urine Clear (Clear); Glucose Urine UA Negative (Negative); Leukocyte Esterase Ur Negative LEU/UL (Negative); Nitrate Urine Negative (Negative); Specific Grav Ur 1.005 (1.001-1.035)
--- OUTSIDE RECORDS SUMMARY | 2025-05-23 17:51 | XMS_ITS | Continuity of Care Document ---
Author Organization [facility] Address [address] [place] [address] [place] [address] Phone Care Team Providers Care Medical Historian Name Role Phone Ubaldo Maynard Unavailable Unavailable Procedures Procedure Date Screening Field Visual Field Examination(s) Office/outpatient Visit, [facility] Optic Nerve Head Eval No Script Advance Directives Directive Yes / No Effective Date File Name No Information Encounters Encounter Description Practice Location Reason(s) For Visit Diagnoses Date Provider Providers Copied on Encounter [facility], [address] [place] [address] [address], [place], [place], [id number], tel:[phone] [facility] No Information 3-200 9 Krishnasamy Ubaldo. [address] [place] [address], [facility], [place]. tel:[phone] [facility], [address] [place] [address] [address], [place], [place], [id number], tel:[phone] [facility] No Information 7-200 9 Krishnasamy Ubaldo. [facility] [address], [facility], [place]. tel:[phone] Referring Provider: Ubaldo whittaker, [address] [place] [address], [facility]. tel:[phone] Office/outpat ient Visit, [facility], [address] [place], [place] [address], [place], [place], [id number], [place] tel:[phone] [facility] No Information 9 Aleyda Acostahil. [address] [facility] [address], [place], [address], [place]. tel:[phone] Family History Family Member Type Diagnosis Age At Onset No Information Payers Payer name Insurance type Covered libertarian ID Authoriza tion(s) No Information Social History Type Description Quantity Date Captured Comments Sex Male Smoking Status No Information Chief Complaint And Reason For Visit No Information Reason For Referral Reason For Referral No Information History Of Present Illness Encounter Date Complaint History Of Prese nt Illness No Information Functional Status Date Functional Assessmen t No Information Instructions Date Instruction Additional Infor mation No Information Assessments Type Assessment Date No Information Patient Care Teams Name Effective Dates (start - stop) Status Members No Information
--- OUTSIDE RECORDS SUMMARY | 2025-05-23 17:51 | XMS_ITS | Encounter Summary ---
Author Organization [facility] Address [address] [place] [address] Care Team Providers Care Parking Lot Chauffeur Name Role Phone Donte Chung MD Primary Care Provider [phone] Andrea Mariscal MD Unavailable Encounter Details Date Type Department Care Team (Late st Contact Info) Description 03/19/2020 Hospital Follow-up Call [facility] [place] [address] Diana Sidhu RN Social History Tobacco Use Types Packs/Day Years Used Date Smoking Tobacco: Unknown Sex and Gender Information Value Date Recorded Sex Assigned at Male 09/17/2020 12:11 AM REVIEW RN Legal Sex Male 3:15 AM CDT Gender Identity Male 09/17/2020 12:11 AM REVIEW RN Sexual Orientation Not on file COVID-19 Exposure [...] on filedocumented in this encounter Care Teams Parking Lot Chauffeur Relationship Specialty Start Date End Date Donte Chung MD [address] [place], [place] [id number] PCP - General FAMILY PRACTICE 03/11/16 Andrea Mariscal MD [address] [place] [address] Mar[place] Industrial Engineering Professor CARDIOVASCULAR DISEASE 03/11/16 documented as of this encounter
--- OUTSIDE RECORDS SUMMARY | 2025-05-23 17:51 | XMS_ITS | Clinical Summary ---
Author Organization [facility] Address [address] [place] [address] Care Team Providers Care Audit Manager Name Role Phone Donte Chung MD Primary Care Provider Allergies Active Allergy Reactions Criticality Noted Date [...] 01/25/2024 INFLUENZA VACCINE (#1) 2025 Care Teams Audit Manager Relationship Specialty Start Date End Date Donte Chung MD [address] [place] [address] PCP - General Family Practice 11/22/19
--- OUTSIDE RECORDS SUMMARY | 2025-05-23 17:51 | XMS_ITS | Clinical Summary ---
Author Organization [facility] Address [address] [place] [address] Care Team Providers Care Agate Setter Name Role Phone Donte Chung MD Primary Care Provider [phone] Andrea Mariscal MD Unavailable Allergies Active Allergy [...] encephalopathy 03/16/2020 Encephalopathy 03/15/2020 Unstable angina pectoris ([facility]) 05/20 Family History Medical History [...] and heating? Not hard at all 09/16/2020 [facility] [place] [facility] - Occupational Stress [...] Sex Assigned at Male 09/17/2020 12:11 AM AUTO TRAVEL COUNSELOR Legal Sex Male 3:15 AM CDT Gender Identity Male 09/17/2020 12:11 AM AUTO TRAVEL COUNSELOR Sexual Orientation Not on file Last Filed Vital Signs Vital Sign Reading Time Taken Comments Blood Pressure 181/90 10/20/2022 3:00 AM AUTO TRAVEL COUNSELOR Pulse 54 10/20/2022 5:15 AM AUTO TRAVEL COUNSELOR Temperature 36.3 C (97.4 F) 10/19/2022 11:08 PM AUTO TRAVEL COUNSELOR Respiratory Rate 15 10/20/2022 5:15 AM AUTO TRAVEL COUNSELOR Oxygen Saturation 96% 10/20/2022 5:15 AM AUTO TRAVEL COUNSELOR Inhaled Oxygen Concentration - - Weight 102.1 kg (225 lb) 10/19/2022 11:08 PM AUTO TRAVEL COUNSELOR Height 175.3 cm (5' 9) 10/19/2022 11:08 PM AUTO TRAVEL COUNSELOR Body Mass Index 33.23 10/19/2022 11:08 PM AUTO TRAVEL COUNSELOR Plan of Treatment Health Maintenance Due Date [...] 100 <200 MG/DL 03/05/2021 7:03 AM CDT [facility] TRIGLYCERIDES 89 <150 MG/DL 03/05/2021 7:03 AM CDT [facility] HDL 56 >40.0 MG/DL 03/05/2021 7:03 AM CDT [facility] LDL (CALCULATED) 26 <100 MG/DL 03/05/20 7:03 AM CDT [facility] NON HDL CHOLESTEROL 44 <130 MG/DL 03/05 7:03 AM T [facility] CHOL/HDL RATIO 1.8 0.0 - 4.5 03/05/2021 7:03 AM T [facility] VLDL CALCULATION 18 5 - 55 MG/DL 03/05/2021 7:03 AM T [facility] LIPID INTERPRETATION 03/05/2021 7:03 AM T [facility] Comment: NIH CONCENSUS REPORT RECOMMENDATIONS: ADULT CHILD LOW RISK: CHOLESTEROL <200 <170 TRIGLYCERIDE <150 --- HDL >=60 --- LDL <100 <110 BORDERLINE: CHOLESTEROL 200-239 170-199 TRIGLYCERIDE 150-199 --- HDL 40-59 --- LDL 100-159 110-129 HIGH RISK: CHOLESTEROL >=240 >=200 TRIGLYCERIDE >=200 --- HDL <40 --- LDL >=160 >=130 03/05/2021 5:30 AM CDT Dottie Iglesias MACHINING SUPERVISOR LABORATORY Final Resul t [facility] [address] [place] [address], from Last 3 Months or Most Recently Relevant to Health Maintenance Insurance Advance Directives Documents on File Type Date Recorded Patient Motor Block Mechanic Expl anation Advance Directives and Living Will 03/18/2020 11:32 AM 05/24/16 HEALTHCARE P OA Advance Directives and Living Will 05/23/2016 POWER OF FILM MASKER * Full Code (Latest Code Status on File) Date Activated Date Inactivated Comments 03/05/2021 3:27 PM 03/06/2021 1:42 PM * Full Code Date Activated Date Inactivated Comments 09/16/2020 10:57 PM 09/17/2020 4:39 PM * Full Code Date Activated Date Inactivated Comments 03/16/2020 1:50 AM 03/18/2020 9:46 PM Care Teams Agate Setter Relationship Specialty Start Date End Date Donte Chung MD [address] [address] PCP - General FAMILY PRACTICE 03/11/16 Andrea Mariscal MD [address] [place] [address] [place] [employer] Or Plant Engineer CARDIOVASCULAR DISEASE 03/11/16
--- OUTSIDE RECORDS SUMMARY | 2025-05-23 17:51 | XMS_ITS | Clinical Summary ---
Author Organization [facility] Address [address] [place] [address] Care Team Providers Care Concrete Block Mason Name Role Phone Unavailable Primary Care Provider Unavailabl e Source Comments [facility],non-owned Affiliates and Associated Physician Practices is amultiple site organization consisting of ambulatory clinics and hospital sitesin [place], [place] and [place]. This disclosure is being madepursuant to the Care Everywhere program and may not contain all information available regarding this patient. Last updated 18.[facility] Allergies Active Allergy Reactions Criticality Noted Date [...] on file Legal Sex Male 6:16 AM FITNESS WORKER Gender Identity Not on file Sexual Orientation [...] patient's age to complete this topic Insurance [facility] Advance Directives * Full Code (Latest Code Status on File) Date Activated Date Inactivated Comments 05/20/2018 4:58 PM 05/21/2018 6:05 PM * Full Code Date Activated Date Inactivated Comments 05/20/2018 4:00 PM 05/20/2018 4:58 PM
[2025-05-23 17:55] LABS: Alanine Aminotransferase 14 U/L (6-50); Albumin Level 4.3 g/dL (3.5-5.1); Alkaline Phosphatase 74 U/L (38-126); Anion Gap 7 mmol/L (4-12); Aspartate Amino Transferase 25 U/L (17-59); Bilirubin,Total 0.6 mg/dL (0.2-1.3); Blood Urea Nitrogen 22 mg/dL (9-20); Calcium 9.4 mg/dL (8.4-10.2); Carbon Dioxide 26 mmol/L (22-30); Chloride 103 mmol/L (98-107); Estimated Glomerular Filt Rate 48; Glucose 90 mg/dL (65-110); Potassium 4.6 mmol/L (3.4-5.0); Sodium 136 mmol/L (137-145); Total Protein 6.8 g/dL (6.3-8.2)
[2025-05-23 17:56] LABS: INR 1.3; Prothrombin Time 16.2 Seconds (11.1-14.7)
[2025-05-23 17:57] LABS: Partial Thromboplastin Time 36.7 Seconds (22.3-36.8)
[2025-05-23 18:07] LABS: Troponin I < 0.012 ng/mL (0.000-0.034)
[2025-05-23 18:15] LABS: Band Neutrophils Percent 1 % (0-6); Eosinophils Absolute Manual 0.15 K/mm3 (0.02-0.50); Eosinophils Percent Manual 1 % (0-4); Lymphocytes Absolute Manual 6.38 K/mm3 (1.1-4.5); Lymphocytes Percent Manual 42.0 % (18-44); Monocytes Absolute Manual 0.60 K/mm3 (0.1-0.90); Monocytes Percent Manual 4 % (3-9); Neutrophils Absolute Manual 8.05 K/mm3 (1.3-6.7); Neutrophils Percent Manual 52 % (46-73); Total Cells Counted 100
[2025-05-23 18:16] VITALS: BP 124/86; PULSE 72; RESP 16; O2SAT 98
[2025-05-23 18:17] LABS: Anisocytosis 2+; Hypochromasia 1+; Schistocytes None Seen
[2025-05-23 18:25] LABS: Thyroid Stimulating Hormone 0.678 uIU/mL (0.465-4.680)
--- NOTE | 2025-05-23 18:29 | PC.NURSE ---
Pt. to CT.
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
[2025-05-23] MEDS: SODIUM CHLORIDE 0.9% IV 1,000 ML 999 ML IV CONT (18:58)
[2025-05-23 20:21] VITALS: BP 164/101; PULSE 70; RESP 13; O2SAT 97
--- NOTE | 2025-05-23 20:38 | PC.NURSE ---
Pt. sister standing outside of room. She states we want to leave. JAMSHID Landry notified and to bedside to talk with pt. and pt. sister.
[2025-05-23] MEDS: ASPIRIN 81 MG CHEWABLE TABLET 324 MG PO (22:38)
[2025-05-23] MEDS: CLOPIDOGREL BISULFATE 300 MG TABLET PO (22:39)
[2025-05-23 22:42] VITALS: BP 151/112; PULSE 77; RESP 14; O2SAT 97
--- NOTE | 2025-05-23 23:07 | PC.NURSE ---
Pt. sister Bernice called and updated of pt. room number.
[2025-05-23 23:21] VITALS: BP 173/88; PULSE 76; RESP 18; TEMP 36.3; O2SAT 98
[2025-05-23 23:23] VITALS: BMI 28.3
--- NOTE | 2025-05-23 23:25 | ADMGEN ---
This patient, Hollis Gentile, was admitted to Medical Room 344-01 admitted at 2320. Patient/family oriented to hospital policies and general routines including ID bracelet, bed and alarms, visiting hours, pain management, procedures, bathroom and other care routines, personal items, smoking policy, room service/diet, and visiting hours. Information on how to activate the Rapid Response Team has been discussed. Patient/Family are encouraged to report perceived risks to care and to ask questions if they do not understand what they are told or what they should do.
[2025-05-24] VITALS (7 sets, daily range): BP systolic 154–155; BP diastolic 82–98; PULSE 72–90; RESP 17–18; TEMP 36.8–36.9; O2SAT 100
--- NOTE | 2025-05-24 | ECHO_ITS ---
Patient Info Name: Hollis Gentile Age: 75 years : 1950 Gender: Male Ht: 72 in Wt: 208 lbs BSA: 2.21 m2 HR: 93 bpm BP: 154 / 82 mmHg Technical Quality: Poor Exam Date: 05/24/2025 2:43 PM Patient Status: I Admit Date: 05/23/2025 Exam Type: CA echo dop color flow w con Complete two-dimensional, color flow and Doppler transthoracic echocardiogram is performed with contrast to opacify the left ventricle and to improve the deliniation of the left ventricle endocardial borders. Staff Referring Physician: Jessica Carlos Health Care Coordinator: Yoon Whitehead Attending Provider: Hiwot Moon MD Contrast/Agitated Saline Contrast/Ag. Saline: Definity Amount: 2.00 ml Administered By: Yoon Whitehead Reason for Poor Study: poor echocardiographic windows Summary 1. Technically suboptimal study due to poor sonographic images. 2. Definity contrast administered improved wall motion interpretation. 3. Left ventricular chamber dimension is normal. 4. Left ventricular systolic function is normal, estimated at 55-60. 5. The left ventricular diastolic function is grade I diastolic dysfunction. 6. E/e' 5 is not elevated. 7. Left atrial chamber dimension is mildly enlarged. 8. There is mild aortic valve sclerosis. Left Ventricle E/e' 5 is not elevated. Left ventricular chamber dimension is normal. Left ventricular systolic function is normal, estimated at 55-60. The left ventricular diastolic function is grade I diastolic dysfunction. Technically suboptimal study due to poor sonographic images. Definity contrast administered improved wall motion interpretation. Right Ventricle Right ventricular chamber dimension is not well visualized. Left Atria Left atrial chamber dimension is mildly enlarged. Right Atria Right atrial chamber dimension is not well visualized. Aortic Valve The aortic valve is trileaflet. There is mild aortic valve sclerosis. There is no aortic valve stenosis. There is no aortic valve regurgitation. Pulmonic Valve There is no pulmonic regurgitation. Mitral Valve There is no mitral valve stenosis. There is no mitral valve regurgitation. Tricuspid Valve There is no tricuspid valve regurgitation. Pericardium/Pleural There is no pericardial effusion. Inferior Vena Cava Normal inferior vena cava with >50% collapse upon inspiration consistent with normal right atrial pressure, 5 mmHg. Aorta The aortic root size at the sinus of Valsalva is normal. Left Ventricular Outflow Tract Name Value Normal LVOT 2D LVOT Diameter 2.0 cm LVOT Doppler LVOT Peak Velocity 69 cm/s LVOT Peak Gradient 2 mmHg LVOT Mean Gradient 1 mmHg LVOT VTI 15 cm LVOT Stroke Volume 48 ml LVOT CO 4.4 l/min LVOT CI 2.0 l/min/m2 Pulmonic Valve Name Value Normal PV Doppler PV Peak Velocity 113 cm/s PV Peak Gradient 5 mmHg Mitral Valve Name Value Normal MV Diastolic Function MV E Peak Velocity 52 cm/s MV A Peak Velocity 83 cm/s MV E/A 0.6 MV Decel Time (PW) 129 ms MV Annular TDI MV E/e' (Septal) 4.7 MV E/e' (Lateral) 6.2 MV E/e' (Average) 5.4 Tricuspid Valve Name Value Normal Estimated PAP/RSVP RA Pressure 5 mmHg <=5 Aortic Valve Name Value Normal AV Doppler AV Peak Velocity 120 cm/s AV Peak Gradient 6 mmHg AV Area (Cont Eq Alfredo) 1.9 cm2 AV DI (Alfredo) 0.58 AV Regurgitation 2D LVOT Area 3.2 cm2 Ventricles Name Value Normal LV Dimensions 2D/MM IVS Diastolic Thickness (2D) 1.1 cm 0.6-1.0 LVID Diastole (2D) 4.1 cm 4.2-5.8 LVIW Diastolic Thickness (2D) 1.2 cm 0.6-1.0 LVID Systole (2D) 2.6 cm 2.5-4.0 LVOT Diameter 2.0 cm LV Mass (2D Cubed) 161.50 g 88.00-224.00 LV Mass Index (2D Cubed) 73 g/m2 49-115 Relative Wall Thickness (2D) 0.59 <=0.42 LV Fractional Shortening/Ejection Fraction 2D/MM LV Fractional Shortening (2D) 36 % 25-43 LV EF (2D Teichkristiz) 66 % LV Diastolic Volume (4C MOD) 77 ml LV EF (4C MOD) 55 % LV Diastolic Volume (2C MOD) 55 ml LV EF (2C MOD) 60 % LV Diastolic Volume (BP MOD) 67 ml 62-150 LV Diastolic Volume Index (BP MOD) 30 ml/m2 34-74 LV Systolic Volume (BP MOD) 27 ml 21-61 LV Systolic Volume Index (BP MOD) 12 ml/m2 11-31 LV EF (BP MOD) 59 % 52-72 LV Diastolic Length (4C) 6.7 cm LV Systolic Length (4C) 5.8 cm LV Stroke Volume (4C MOD) 43 ml RV Dimensions 2D/MM TAPSE 1.0 cm >=1.7 Atria Name Value Normal LA Dimensions LA Volume (4C A-L) 71 ml LA Volume (BP A-L) 47 ml Report Signatures
[2025-05-24 00:10] LABS: Cholesterol 138 mg/dL (0-200); HDL Direct 52 mg/dL; Triglycerides 105 mg/dL (<150)
[2025-05-24 00:13] LABS: Hemoglobin A1C 5.5 % (<5.7)
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
[2025-05-24 00:40] LABS: INR 1.3; Prothrombin Time 16.0 Seconds (11.1-14.7)
[2025-05-24 00:41] LABS: Partial Thromboplastin Time 37.0 Seconds (22.3-36.8)
[2025-05-24] MEDS: oxyCODONE HCL (*CRX) 5 MG TAB IR 10 MG PO ×3 (01:19→21:38)
[2025-05-24 05:53] LABS: Hematocrit 34.7 % (42.0-52.0); Hemoglobin 10.4 g/dL (14.0-18.0); Immature Granulocyte Percent A 0.2 % (0-0.5); Lymphocytes Absolute Auto 3.73 K/mm3 (0.9-3.2); Mean Corpuscular HGB Conc 30.0 g/dl (32-36); Mean Corpuscular Hemoglobin 24.3 pg (26-34); Mean Corpuscular Volume 81.1 fl (80-100); Nucleated Red Blood Cells Absolute Auto 0.000 K/mm3 (0.0-0.012); Nucleated Red Blood Cells Perc 0.0 % (0.0-0.2); Platelet Count Result 222 k/mm3 (150-375); Red Blood Count 4.28 M/mm3 (4.6-6.20); White Blood Count 8.8 K/mm3 (4.5-10.0)
[2025-05-24 06:14] LABS: Alanine Aminotransferase 12 U/L (6-50); Albumin Level 3.9 g/dL (3.5-5.1); Alkaline Phosphatase 76 U/L (38-126); Anion Gap 6 mmol/L (4-12); Aspartate Amino Transferase 26 U/L (17-59); Bilirubin,Total 0.6 mg/dL (0.2-1.3); Blood Urea Nitrogen 18 mg/dL (9-20); Calcium 9.2 mg/dL (8.4-10.2); Carbon Dioxide 24 mmol/L (22-30); Chloride 106 mmol/L (98-107); Estimated CRCL calculation 53 ml/min; Estimated Glomerular Filt Rate > 60; Glucose 83 mg/dL (65-110); Magnesium 1.9 mg/dL (1.6-2.3); Potassium 4.2 mmol/L (3.4-5.0); Sodium 136 mmol/L (137-145); Total Protein 6.2 g/dL (6.3-8.2)
[2025-05-24] MEDS: ASPIRIN 81 MG CHEWABLE TABLET PO (08:18)
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
--- NOTE | 2025-05-24 15:31 | PCCARD ---
Bubble study unable to be performed due to poor sonographic windows. Unable to visualize interatrial septum and apical images clearly.
[2025-05-24] MEDS: PERFLUTREN LIPID MICROSPHERES 1.5 ML VIAL DILUTED TO 10 ML TOTAL VOLUME IV PUSH (15:33)
--- NOTE | 2025-05-24 15:34 | IVDEFINITY ---
Prior to administration of IV Definity the patient was educated on the risks and benefits of the imaging enhancing agent including potential adverse side effects. The patient verbalized understanding. Allergies were verified. No exclusion criteria were identified and at least one of the following inclusion criteria were met: 1) physician request, 2) patient technically difficult to image (per the [place] Society of Echocardiography guidelines of two or more segments not discernable within the apical view), or 3) questionable left ventricular function. ?
[2025-05-24 16:47] LABS: Ammonia < 9 umol/L (9-30)
[2025-05-24 17:28] LABS: Cannabinoid Screen Urine Negative (Negative)
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
[2025-05-24] MEDS: RIVAROXABAN 20 MG TABLET PO (17:33)
[2025-05-24] MEDS: PREGABALIN (*CRX) 75 MG CAPSULE PO (17:34)
[2025-05-24 20:09] LABS: Vitamin B12 700.0 pg/mL (239-931)
[2025-05-25] VITALS: PULSE 81
[2025-05-25 04:00] VITALS: PULSE 83
[2025-05-25 05:16] VITALS: BP 168/95; PULSE 93; RESP 18; TEMP 37.1; O2SAT 99
--- NOTE | 2025-05-25 05:20 | PC.NURSE ---
Patient noted refusing his bed alarm, safety education provided. Patient states understanding. Frequent monitoring noted.
[2025-05-25 07:04] LABS: Hematocrit 38.3 % (42.0-52.0); Hemoglobin 11.6 g/dL (14.0-18.0); Immature Granulocyte Percent A 0.3 % (0-0.5); Lymphocytes Absolute Auto 3.72 K/mm3 (0.9-3.2); Mean Corpuscular HGB Conc 30.3 g/dl (32-36); Mean Corpuscular Hemoglobin 24.5 pg (26-34); Mean Corpuscular Volume 81.0 fl (80-100); Nucleated Red Blood Cells Absolute Auto 0.000 K/mm3 (0.0-0.012); Nucleated Red Blood Cells Perc 0.0 % (0.0-0.2); Platelet Count Result 265 k/mm3 (150-375); Red Blood Count 4.73 M/mm3 (4.6-6.20); White Blood Count 10.7 K/mm3 (4.5-10.0)
[2025-05-25 07:49] LABS: Alanine Aminotransferase 14 U/L (6-50); Albumin Level 4.3 g/dL (3.5-5.1); Alkaline Phosphatase 81 U/L (38-126); Anion Gap 12 mmol/L (4-12); Aspartate Amino Transferase 37 U/L (17-59); Bilirubin,Total 0.6 mg/dL (0.2-1.3); Blood Urea Nitrogen 16 mg/dL (9-20); Calcium 9.4 mg/dL (8.4-10.2); Carbon Dioxide 21 mmol/L (22-30); Chloride 105 mmol/L (98-107); Estimated CRCL calculation 60 ml/min; Estimated Glomerular Filt Rate > 60; Glucose 93 mg/dL (65-110); Magnesium 1.9 mg/dL (1.6-2.3); Sodium 138 mmol/L (137-145); Total Protein 6.8 g/dL (6.3-8.2)
[2025-05-25 07:50] LABS: Potassium 3.6 mmol/L (3.4-5.0)
[2025-05-25] MEDS: oxyCODONE HCL (*CRX) 5 MG TAB IR 10 MG PO (07:53)
[2025-05-25] MEDS: ASPIRIN 81 MG CHEWABLE TABLET PO (07:54)
[2025-05-25] MEDS: ISOSORBIDE MONONITRATE 60 MG TAB.ER.24H PO (08:00)
[2025-05-25] MEDS: PREGABALIN (*CRX) 75 MG CAPSULE PO (08:00)
[2025-05-25] MEDS: FERROUS SULFATE 325 MG TABLET DR PO (08:00)
[2025-05-25] MEDS: PANTOPRAZOLE 40 MG TABLET PO (08:00)
[2025-05-25 08:01] VITALS: PULSE 87
[2025-05-25] MEDS: FLUTICASONE PROPIONATE 0.05% NA SPR 16 GM BTL (*BKC) 1 SPRAY NASAL (08:01)
[2025-05-25] MEDS: CITALOPRAM HYDROBROMIDE 20 MG TABLET PO (08:01)
[2025-05-25] MEDS: ATORVASTATIN 40 MG TABLET 80 MG PO (08:01)
[2025-05-25] MEDS: METOPROLOL SUCCINATE EXT REL 25 MG TABCR PO (08:01)
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
[2025-05-25 14:00] VITALS: BP 109/80; PULSE 94; RESP 18; TEMP 36.8; O2SAT 97
--- NOTE | 2025-05-26 15:55 | WPDNEUROLOGY ---
Neurology EEG Report General Information Date of Study: 05/25/25 TEST EEG DIAGNOSIS rule out seizures CONDITION OF RECORDING awake, drowsy and asleep. EEG NUMBER [id number] CLINICAL HISTORY 75 years old male with history of episodes of confusion. Patient will do things and Dr. Place and not remember doing it such as even yd work, driving to get prescriptions, ex cetera he will be confused and incoherent , saying things that do not make sense or that he would not typically say. EEG DESCRIPTION Background rhythm consists of low to medium voltage 5 to 7 hertz per 2nd theta activity admixed with intermittent low to medium voltage 3 to 4 hertz per 2nd delta activity. Hyperventilation not done. Photic stimulation not done. Non paroxysmal. Nonfocal. Nonlateralizing. IMPRESSION Abnormal record due to the presence of bihemispheric slow activity with absence of normal background rhythm. These findings are suggestive of underlying organic or metabolic encephalopathy although there is no evidence of seizures. Clinical correlation recommended.
== END 2025-05-25 16:42 | disposition home or self-care (01) ==
LOC: ANHED 22:18 → ANH3MED 23:05
PROVIDERS: Nurse Practitioner; Psychiatry & Neurology Neurology; Admitting Provider Family Medicine; Emergency Provider Physician Assistant; PCP Family Medicine; Visit Provider General Practice
DX: G45.9 Transient cerebral ischemic attack, unspecified (principal); G93.40 Encephalopathy, unspecified; G47.01 Insomnia due to medical condition; F11.29 Opioid dependence with unspecified opioid-induced disorder; Z79.01 Long term (current) use of anticoagulants; D68.51 Activated protein C resistance; D68.01 Von Willebrand disease, type 1; I48.0 Paroxysmal atrial fibrillation; I25.10 Atherosclerotic heart disease of native coronary artery without angina pectoris; Z95.1 Presence of aortocoronary bypass graft; G89.4 Chronic pain syndrome; E78.2 Mixed hyperlipidemia; I10 Essential (primary) hypertension; I25.2 Old myocardial infarction; M10.9 Gout, unspecified
CPT/HCPCS: 36415; 70450; 70496; 70498; 70553; 71046; 73560; 80053; 80061; 80307; 81003; 82077; 82140; 82306; 82607; 82746; 83036; 83735; 83921; 84443; 84484; 85025; 85610; 85730; 93005; 95816; 96361; 96374; 99285; A9270; A9577; C8929; G0378; J7030; Q9957; Q9967